=== PATIENT | female | born 1955 | race Caucasian/White ===

== ENCOUNTER 2023-10-16 08:32 | Outpatient (CLI) | payer MEDICARE, OTHER, SELFPAY ==
--- NOTE | ~2023-10-16 | XR_ITS ---
EXAMINATION: XR UGIAC w barium swallow DATE: 10/16/2023 09:41 INDICATION: Epigastric abdominal pain. Sebas fundoplication. TECHNIQUE: The patient drank thick barium, gas-producing crystals, and thin barium. Fluoroscopy of th e esophagus, stomach, and proximal small bowel was performed. Fluoroscopy exposure time was 0.9 minut es. The total number of images was 288. Total dose-area product was 2.64 Gy-cm^2. COMPARISON: CT abdomen and pelvis 08/22/2009 FINDINGS: There is no mass or stricture of the esophagus. Esophageal motility is normal. The gastroes ophageal junction is at the level of the diaphragm. There are changes of fundoplication of the stomac h with the wrap above the diaphragm. The stomach and proximal small bowel show normal folding pattern s. IMPRESSION: 1. Changes of fundoplication with the gastroesophageal junction at the level of the diaphragm and the wrap above the diaphragm. Reviewed, dictated and finalized at location A. COMPLIANCE COORDINATOR
== END 2023-10-16 08:33 | disposition home or self-care (01) ==
PROVIDERS: PCP Emergency Medicine; Visit Provider Surgery
DX: R10.13 Epigastric pain (principal); K21.9 Gastro-esophageal reflux disease without esophagitis
CPT/HCPCS: 74246

== ENCOUNTER 2023-10-28 09:30 | Outpatient (CLI) | payer MEDICARE, OTHER, SELFPAY ==
--- NOTE | ~2023-10-28 | NM_ITS ---
EXAMINATION: NM hepatobiliary wo pharm DATE: 10/28/2023 12:35 INDICATION: Epigastric abdominal pain. COMPARISON: Ultrasound 10/28/2023 TECHNIQUE: 5.3 mCi Tc-99m mebrofenin (Choletec) was administered intravenously. Scintigraphic images of the abdomen were obtained for one hour. Then, the patient drank 8 oz Ensure, and imaging was cont inued for 60 minutes. FINDINGS: There is normal clearance of radiotracer from the blood pool. There is homogeneous tracer u ptake by the liver. Activity progresses to the bowel and gallbladder. Gallbladder ejection fraction (GBEF) was 14%. Note that with this technique, normal GBEF >= 33%. IMPRESSION: 1. Low gallbladder ejection fraction, consistent with gallbladder dysfunction and/or chronic cholecy stitis. Reviewed, dictated and finalized at location A. P WHEELER IMPRESSION: 1. Low gallbladder ejection fraction, consistent with gallbladder dysfunction and/or chronic cholecystitis.
--- NOTE | ~2023-10-28 | US_ITS ---
US abdomen limited INDICATION: Epigastric pain PROCEDURE: Realtime right upper abdominal ultrasound. COMPARISON: No prior studies for comparison. FINDINGS: The pancreas is normal without focal mass or pancreatic ductal dilation. Liver echotexture is normal without focal mass or intrahepatic biliary dilatation. There is normal directional flow i n the portal vein. The gallbladder is normal without stones, gallbladder wall thickening or pericholecystic fluid. Comm on bile duct measures 4 mm. No sonographic Liu's sign. IMPRESSION: 1: Normal limited abdominal ultrasound. Reviewed, dictated and finalized at location B. EN WRITER
== END 2023-10-28 09:31 | disposition home or self-care (01) ==
PROVIDERS: PCP Emergency Medicine; Visit Provider Surgery
DX: R10.13 Epigastric pain (principal)
CPT/HCPCS: 76705; 78226; A9537

== ENCOUNTER 2023-11-22 10:19 | Outpatient (CLI) | payer MEDICARE, OTHER, SELFPAY ==
--- NOTE | 2023-11-22 10:30 | ECG_ITS ---
Measurements Intervals [place] Rate: 62 P: 50 MN: 208 QRS: 22 QRSD: 88 T: 31 QT: 386 QTc: 393 Interpretive Statements BASELINE ARTIFACT/POOR DATA QUALITY SINUS RHYTHM LOW QRS VOLTAGE IN PRECORDIAL LEADS [QRS DEFLECTION < 1.0 mV IN CHEST LEADS] OTHERWISE GROSSLY NORMAL ECG NO PREVIOUS ECG AVAILABLE FOR COMPARISON Electronically Signed On 11-22-2023 15:13:55 LIE DETECTOR OPERATOR by Paul Diehl M.D.
[2023-11-22 11:14] LABS: Alanine Aminotransferase 18 U/L (6-35); Albumin Level 4.4 g/dL (3.5-5.1); Alkaline Phosphatase 70 U/L (38-126); Amylase 78 U/L (30-110); Aspartate Amino Transferase 27 U/L (14-36); Bilirubin,Total 0.5 mg/dL (0.2-1.3); Lipase 203 U/L (23-300)
== END 2023-11-22 10:20 | disposition home or self-care (01) ==
LOC: ANHSURGERY 10:24
PROVIDERS: PCP Emergency Medicine; Visit Provider Surgery
DX: Z01.818 Encounter for other preprocedural examination (principal); K81.9 Cholecystitis, unspecified; I10 Essential (primary) hypertension; R93.1 Abnormal findings on diagnostic imaging of heart and coronary circulation
CPT/HCPCS: 36415; 80076; 82150; 83690; 86850; 86900; 86901; 93005

== ENCOUNTER 2023-11-27 00:59 | Day surgery (SDC) | payer MEDICARE, OTHER, SELFPAY ==
[2023-11-19 11:25] VITALS: BMI 27.1
--- NOTE | 2023-11-19 11:34 | PC.NURSE ---
PRE-OP INSTRUCTIONS, PLEASE READ CAREFULLY Report to the Outpatient Waiting Room, entrance under the green pavilion located off [facility], at time _0800_ on date _11/27/23_. Planned Procedure Time: _1000_. Time changes happen often and if your time is changed the preop area will call you the afternoon before. - You and your visitor will be asked to self-screen and do not enter if you have any COVID symptoms. - A mask is optional within the hospital at this time. Patients may have clear liquids (water, carbonated beverages, clear teas, apple juice) until 3 hours prior to surgery (0700 AM) with a maximum of 20 ounces. - No food from midnight until time of surgery Take the following medications with a SIP of water the morning of surgery: _AMLODIPINE, ESCITALOPRAM, GABAPENTIN, LEVOTHYROXINE, METOPROLOL_ DO NOT STOP ANY OF YOUR OTHER PRESCRIPTION MEDICATIONS PRIOR TO SURGERY ?EXCEPT THE FOLLOWING Medications to discontinue per physician __NONE__, Date to take last dose Please no make-up, nail guyanese, hairspray, perfume, deodorant, or body powder the day of surgery. No jewelry (including any body piercings) or valuables the day of surgery, leave them at home. Please take a shower or bath the night before, or the morning of, surgery with an antibacterial soap. Wear comfortable, loose fitting clothing. - Jewelry must be removed prior to entering the operating room. Rings and piercings that are not removed may be cut off. - The hospital will not accept responsibility for valuables. - Please leave all valuables, including medications, at home the day of surgery. If you are going home after surgery, a licensed front loader residential driver must drive you home. - NO public transportation without another adult if you receive anesthesia. - We recommend that an adult stay with you for 24 hours following discharge. - We also recommend that you do not drive, make important decision, drink alcoholic beverages, or take any drugs that were not prescribed by your health care provider for at least 24 hours after your discharge time. Follow any additional instructions given to you from your surgeon. - HIBICLENS SHOWER AM OF SURGERY If you or anyone in your household have experienced Covid symptoms in the past week, please notify your surgeon or the nurse liaison at the phone number below for possible testing. Telephone instructions given to _PATIENT_and asked if any additional questions and then verbalized understanding. Patient advised to call surgeon office or pre surgery nurse liaison [phone] if any additional questions.
[2023-11-27] VITALS (8 sets, daily range): BP systolic 100–145; BP diastolic 51–93; PULSE 51–87; RESP 12–22; TEMP 36.4–36.8; O2SAT 93–100
--- NOTE | 2023-11-27 10:51 | WPDHPUPDATE1 ---
History and Physical Update Update Date/Time: 11/27/23 10:51 History and Physical has been reviewed, including an updated exam of the patient. There are NO changes in the patient's condition. Risks, benefits, and alternatives have been discussed and questions answered. Patient agrees to proceed with procedure.
[2023-11-27] MEDS: KETOROLAC 15 MG/ML VIAL (*BKC) IV PUSH (11:35)
[2023-11-27] MEDS: ACETAMINOPHEN 500 MG TABLET 1000 MG PO (11:35)
--- NOTE | 2023-11-27 11:36 | WPDANESEPPF ---
Anes - Initial Pre Proc Eval Procedure: Operation Date: 11/27/23 13:00 Proposed Procedures p Laparoscopic Cholecystectomy - Rufino Fernandes MD Date/Time: 11/27/23 11:36 Surgeon: Rufino Fernandes MD Pre Op Diagnosis: acalculous cholecystitis Patient Data Age: 68 Gender: F Height: 1.63 m Weight: 71.81 kg Allergies Allergy/AdvReac Type Severity Reaction Status Date / Time Sulfa (Sulfonamide Allergy Unknown RESPIRATORY Verified 11/27/23 11:35 Antibiotics) DISTRESS/RASH Home Medications Medication Instructions Recorded Confirmed Type metoprolol tartrate 50 mg tablet See Rx Instructions .Route 04/01/23 11/27/23 Rx .COMPLEX #180 tabs scopolamine base 1 mg over 3 days 1 patch transdermal Q3D PRN motion 04/25/23 11/19/23 Rx transdermal patch sickness #4 ea escitalopram oxalate 5 mg tablet See Rx Instructions .Route 04/30/23 11/27/23 Rx .COMPLEX #90 tabs levothyroxine 50 mcg tablet See Rx Instructions .Route 06/24/23 11/27/23 Rx (Synthroid) .COMPLEX #90 tabs amlodipine 10 mg tablet See Rx Instructions .Route 08/26/23 11/27/23 Rx .COMPLEX #90 tabs potassium chloride 10 mEq See Rx Instructions .Route 08/26/23 11/27/23 Rx capsule,extended release .COMPLEX #90 caps hydrochlorothiazide 25 mg tablet See Rx Instructions .Route 09/05/23 11/27/23 Rx .COMPLEX #90 tabs alprazolam 0.5 mg tablet (Xanax) 0.5 mg PO DAILY PRN Anxiety 11/19/23 11/27/23 History fluticasone propionate 50 1 spray intranasal BID PRN 11/19/23 11/27/23 History mcg/actuation nasal Congestion spray,suspension (Flonase Allergy Relief) gabapentin 600 mg tablet See Rx Instructions .Route .COMPLEX 11/19/23 11/27/23 History valacyclovir 1 gram tablet 1,000 mg PO DAILY PRN FEVER 11/19/23 11/27/23 History BLISTERS Patient hx anesthesia problems: post op nausea/vomiting Family hx anesthesia problems: none Results Review: All pre-operative results and documents have been reviewed as part of the pre-operative evaluation. [facility] Past Medical History Medical History GERD (gastroesophageal reflux disease) Hypertension Kidney stones Mitral valve prolapse Surgical History Surgical History History of appendectomy History of bilateral breast reduction surgery History of cataract extraction History of cystoscopy History of hysterectomy History of lithotripsy History of Sebas fundoplication [address] Fernandes History of rotator cuff surgery right History of tubal ligation Family History Family History Father Diabetes mellitus Family history of hypercholesterolemia Hypertension Family history of kidney disease Family history of coronary artery disease Mother Family history of hypercholesterolemia Hypertension Family history of coronary artery disease Sibling Family history of malignant melanoma Grandparent Family history of malignant neoplasm of ovary Other Family history of cardiovascular disease Family history of malignant neoplasm Social History Social History Smoking status: Never smoker Second hand tobacco smoke exposure: No Alcohol intake: current Alcohol use details: 1/MONTH Substance use: never Substance use type: does not use Lack of Transportation: No Lack of Food: Never True Current Housing: I Have Housing Concerned About Future Housing: No Difficulty Paying Gas/Electric Bills: No Difficulty Paying for Meds: No Currently Unemployed: No Education: Don't Know Difficulty w/ Childcare or Family Care: No Living arrangements: with family Spiritual care concerns: No Anes - Eval Final PreProcedure Day of Procedure 11/27/23 11:36 Patient weight: normal Heart: regular rate and rhythm Lungs: clear to auscultation Airway: Mal
[2023-11-27] MEDS: ceFAZolin 2 GM/D5W 50 ML 2 GM/50 ML BAG IVPB (11:50)
[2023-11-27] MEDS: BUPIVACAINE/EPINEPHRINE 0.5% 50 ML VIAL 30 ML INFILTRATE (12:22)
--- NOTE | 2023-11-27 12:36 | P.OP_ITS ---
Procedure Note - Detailed Date of Procedure 11/27/23 Pre-op Diagnosis acalculous chronic cholecystitis Post-op Diagnosis Same Procedure Performed Laparoscopic cholecystectomy Surgeon Rufino Fernandes MD Child Development Teacher Elroy HOYT Anesthesia General and Local Indications Patient is a 68-year-old woman who has had postprandial substernal pain that radiates to the right upper quadrant. It is worse after eating a big meal. She had an ultrasound of the gallbladder which was negative. She had an upper GI which was also negative. Hepatobiliary scan with Ensure showed a very low gallbladder ejection fraction of 14%. She is taken to surgery now for laparoscopic cholecystectomy for acalculous chronic cholecystitis. Findings Mild inflammatory changes. No biliary ductal dilatation. No liver abnormalities appreciated. Description of Procedure Patient was taken to surgery and induced into general anesthesia. The abdomen is prepped and draped. Trocars were placed in the usual fashion using [employer] optical trocars and a 5 mm camera. The gallbladder was decompressed with a laparoscopic aspirator. The cholecystotomy was closed with a Vicryl endoloop. The gallbladder was then retracted anterosuperiorly. Adhesions to the gallbladder were taken down. Traction was placed on the infundibulum. Dissection was carried out in the cholecystohepatic triangle. The cystic duct and cystic artery were dissected out very clearly. The gallbladder was dissected off the liver over half its length. Critical view was achieved. I securely clipped and divided the cystic duct and cystic artery. The gallbladder was then dissected free from the liver. Cautery was used for hemostasis. The gallbladder was placed in an Endo-Catch bag and removed from the epigastric trocar site. The epigastric trocar was replaced. We checked the gallbladder fossa and right upper quadrant. There was no evidence of bleeding or bile leak. We evacuated CO2 and removed the trocar sleeves. Skin wounds were closed with subcuticular 4-0 Monocryl skin suture. The wounds were dressed with Exofin surgical adhesive. The patient was awakened and taken to recovery in good condition. Sponge and needle counts were correct x2. Estimated Blood Loss -5 Drains No Packing No Pathology Yes (Gallbladder) Complications No immediate complications Condition Stable Disposition PACU [facility] Billing Surgery - Charge Forward: Surgery Billing (Laparoscopic cholecystectomy)
[2023-11-27] MEDS: LACTATED RINGERS 1,000 ML 30 ML IV CONT (12:43)
[2023-11-27] MEDS: fentaNYL CITRATE INJ (*CRX) 100 MCG/2 ML VIAL 25 MCG IV PUSH ×2 (13:10→13:20)
[2023-11-27] MEDS: oxyCODONE HCL (*CRX) 5 MG TAB IR PO (13:51)
== END 2023-11-27 14:28 | disposition home or self-care (01) ==
PROVIDERS: PCP Emergency Medicine; Visit Provider Surgery
PROC: 0FT44ZZ Resection of Gallbladder, Percutaneous Endoscopic Approach (ICD-10-PCS; CPT 47562; principal; 2023-11-27 13:00)
DX: K80.10 Calculus of gallbladder with chronic cholecystitis without obstruction (principal); I10 Essential (primary) hypertension; K21.9 Gastro-esophageal reflux disease without esophagitis; Z98.890 Other specified postprocedural states; Z86.79 Personal history of other diseases of the circulatory system; Z82.49 Family history of ischemic heart disease and other diseases of the circulatory system; Z80.41 Family history of malignant neoplasm of ovary; Z80.8 Family history of malignant neoplasm of other organs or systems
CPT/HCPCS: 47562; 88304; A9270; C1713; J0690; J1100; J1885; J2250; J2405; J2704; J2710; J3010; J7120

== ENCOUNTER → 2024-01-01 10:31 | Outpatient (CLI) | payer MEDICARE, OTHER, SELFPAY ==
--- NOTE | ~2024-01-01 | MM_ITS ---
EXAMINATION: MM screening hank BI w angela HISTORY: Screening TECHNIQUE: Craniocaudal and mediolateral oblique 3-D tomosynthesis images were obtained and synthetic 2-D images were generated. CAD analysis was submitted and interpreted. COMPARISON: Comparison to multiple prior studies sequentially, with oldest reviewed study dated 10/03. BREAST PARENCHYMAL COMPOSITION: Breast composed of scattered areas of fibroglandular density FINDINGS: There is no evidence of suspicious mass, calcification, or architectural distortion to sugg est malignancy in either breast. There has been no suspicious interval change. IMPRESSION: 1. No mammographic evidence of malignancy. 2. Recommend routine screening mammography in one year. BI-RADS Category 1: Negative Reviewed, dictated and finalized at location A. N BUILDER
== END ==
PROVIDERS: PCP Emergency Medicine; Visit Provider Emergency Medicine
DX: Z12.31 Encounter for screening mammogram for malignant neoplasm of breast (principal)
CPT/HCPCS: 77063; 77067

== ENCOUNTER 2024-01-02 01:15 | Day surgery (SDC) | payer MEDICARE, OTHER, SELFPAY ==
[2023-12-13 11:22] VITALS: BMI 26.9
--- NOTE | 2023-12-31 09:12 | SUR.PREOP ---
Patient called regarding upcoming procedure. Reviewed preop instructions, appointment times, and procedure prep.
--- NOTE | 2024-01-01 16:12 | PM.HPGS ---
History of Present Illness History of Present Illness Consent: Risks, benefits, and alternatives have been discussed and questions answered. Patient agrees to proceed with procedure. Chief complaint: epigastric pain,Other specified post procedural st Narrative: Margaret Ocasio is a 68 year old female Referred for investigation of epigastric pain. She has a history of acid reflux and had an unremarkable EGD 5 years ago. For about 7 months now she has had a constant discomfort in the lower substernal area, a pressure sensation. She states she had a fundoplication several years ago because she was having nocturnal regurgitation and choking. This no longer occurs, nor does she have problems with heartburn, but her barium swallow done a couple months ago shows that her fundoplication now is above the diaphragm. She had a cholecystectomy last month hoping this would help, However her symptoms have not been alleviated. Review of Systems Review of Systems: All systems reviewed & are unremarkable except as noted in HPI and below PMFSH Past Medical History Medical History GERD (gastroesophageal reflux disease) Hypertension Kidney stones Mitral valve prolapse Surgical History Surgical History History of appendectomy History of bilateral breast reduction surgery History of cataract extraction History of cystoscopy History of hysterectomy History of lithotripsy History of Sebas fundoplication [address] Fernandes History of rotator cuff surgery right History of tubal ligation Family History Family History Father Diabetes mellitus Family history of hypercholesterolemia Hypertension Family history of kidney disease Family history of coronary artery disease Mother Family history of hypercholesterolemia Hypertension Family history of coronary artery disease Sibling Family history of malignant melanoma Grandparent Family history of malignant neoplasm of ovary Other Family history of cardiovascular disease Family history of malignant neoplasm Social History Social History Smoking status: Never smoker Second hand tobacco smoke exposure: No Alcohol intake: current Drinks per week: 1 Alcohol use details: GLASS WINE Substance use: never Substance use type: does not use Lack of Transportation: No Lack of Food: Never True Current Housing: I Have Housing Concerned About Future Housing: No Difficulty Paying Gas/Electric Bills: No Difficulty Paying for Meds: No Currently Unemployed: No Education: Don't Know Difficulty w/ Childcare or Family Care: No Living arrangements: with family Spiritual care concerns: No Meds Home Medications and Allergies Home Medications Medication Instructions Recorded Confirmed Type metoprolol tartrate 50 mg tablet See Rx Instructions .Route 04/01/23 12/13/23 Rx .COMPLEX #180 tabs scopolamine base 1 mg over 3 days 1 patch transdermal Q3D PRN motion 04/25/23 12/13/23 Rx transdermal patch sickness #4 ea escitalopram oxalate 5 mg tablet See Rx Instructions .Route 04/30/23 12/13/23 Rx .COMPLEX #90 tabs levothyroxine 50 mcg tablet See Rx Instructions .Route 06/24/23 12/13/23 Rx (Synthroid) .COMPLEX #90 tabs amlodipine 10 mg tablet See Rx Instructions .Route 08/26/23 12/13/23 Rx .COMPLEX #90 tabs potassium chloride 10 mEq See Rx Instructions .Route 08/26/23 12/13/23 Rx capsule,extended release .COMPLEX #90 caps hydrochlorothiazide 25 mg tablet See Rx Instructions .Route 09/05/23 12/13/23 Rx .COMPLEX #90 tabs alprazolam 0.5 mg tablet (Xanax) 0.5 mg PO DAILY PRN Anxiety 11/19/23 12/13/23 History fluticasone propionate 50 1 spray intranasal BID PRN 11/19/23 12/13/23 History mcg/actuation nasal Congestion spray,suspension
[2024-01-02 12:21] VITALS: BP 147/73; PULSE 61; RESP 20; TEMP 36.4; O2SAT 98; BMI 26.6
[2024-01-02] MEDS: LACTATED RINGERS 1,000 ML 150 ML IV CONT (12:32)
--- NOTE | 2024-01-02 12:58 | WPDANESEPPF ---
Anes - Initial Pre Proc Eval Procedure: Operation Date: 01/02/24 13:30 Proposed Procedures p Esophagogastroduodenoscopy - Abdirahman Martell MD Date/Time: 01/02/24 12:58 Surgeon: Abdirahman Martell MD Pre Op Diagnosis: epigastric pain,Other specified post procedural st Patient Data Age: 68 Gender: F Height: 1.63 m Weight: 70.5 kg Last Vital Signs Temp 36.4 C 01/02/24 12:21 Pulse 61 01/02/24 12:21 Resp 20 01/02/24 12:21 BP 147/73 H 01/02/24 12:21 Pulse Ox 98 01/02/24 12:21 O2 Del Method Room Air 01/02/24 12:21 Allergies Allergy/AdvReac Type Severity Reaction Status Date / Time Sulfa (Sulfonamide Allergy Severe RESPIRATORY Verified 01/02/24 12:19 Antibiotics) DISTRESS/RASH Home Medications Medication Instructions Recorded Confirmed Type metoprolol tartrate 50 mg tablet See Rx Instructions .Route 04/01/23 12/13/23 Rx .COMPLEX #180 tabs scopolamine base 1 mg over 3 days 1 patch transdermal Q3D PRN motion 04/25/23 12/13/23 Rx transdermal patch sickness #4 ea escitalopram oxalate 5 mg tablet See Rx Instructions .Route 04/30/23 12/13/23 Rx .COMPLEX #90 tabs levothyroxine 50 mcg tablet See Rx Instructions .Route 06/24/23 12/13/23 Rx (Synthroid) .COMPLEX #90 tabs amlodipine 10 mg tablet See Rx Instructions .Route 08/26/23 12/13/23 Rx .COMPLEX #90 tabs potassium chloride 10 mEq See Rx Instructions .Route 08/26/23 12/13/23 Rx capsule,extended release .COMPLEX #90 caps hydrochlorothiazide 25 mg tablet See Rx Instructions .Route 09/05/23 12/13/23 Rx .COMPLEX #90 tabs alprazolam 0.5 mg tablet (Xanax) 0.5 mg PO DAILY PRN Anxiety 11/19/23 12/13/23 History fluticasone propionate 50 1 spray intranasal BID PRN 11/19/23 12/13/23 History mcg/actuation nasal Congestion spray,suspension (Flonase Allergy Relief) gabapentin 600 mg tablet See Rx Instructions .Route .COMPLEX 11/19/23 12/13/23 History valacyclovir 1 gram tablet 1,000 mg PO DAILY PRN FEVER 11/19/23 12/13/23 History BLISTERS Patient hx anesthesia problems: none Family hx anesthesia problems: none Results Review: All pre-operative results and documents have been reviewed as part of the pre-operative evaluation. [facility] Past Medical History Medical History GERD (gastroesophageal reflux disease) Hypertension Kidney stones Mitral valve prolapse Surgical History Surgical History History of appendectomy History of bilateral breast reduction surgery History of cataract extraction History of cystoscopy History of hysterectomy History of lithotripsy History of Sebas fundoplication [address] Fernandes History of rotator cuff surgery right History of tubal ligation Family History Family History Father Diabetes mellitus Family history of hypercholesterolemia Hypertension Family history of kidney disease Family history of coronary artery disease Mother Family history of hypercholesterolemia Hypertension Family history of coronary artery disease Sibling Family history of malignant melanoma Grandparent Family history of malignant neoplasm of ovary Other Family history of cardiovascular disease Family history of malignant neoplasm Social History Social History Smoking status: Never smoker Second hand tobacco smoke exposure: No Alcohol intake: current Drinks per week: 1 Alcohol use details: GLASS WINE Substance use: never Substance use type: does not use Lack of Transportation: No Lack of Food: Never True Current Housing: I Have Housing Concerned About Future Housing: No Difficulty Paying Gas/Electric Bills: No Difficulty Paying for Meds: No Currently Unemployed: No Education: Don't Know Difficulty w/ Childcare or Family Ca
[2024-01-02 13:52] VITALS: BP 102/50; PULSE 60; RESP 20; O2SAT 98
[2024-01-02 14:02] VITALS: BP 118/61; PULSE 54; RESP 17; O2SAT 99
[2024-01-02 14:12] VITALS: BP 104/57; PULSE 55; RESP 17; O2SAT 100
== END 2024-01-02 14:27 | disposition home or self-care (01) ==
PROVIDERS: PCP Emergency Medicine; Referring Provider Surgery; Visit Provider Internal Medicine Gastroenterology
PROC: 0DJ08ZZ Inspection of Upper Intestinal Tract, Via Natural or Artificial Opening Endoscopic (ICD-10-PCS; CPT 43235; principal; 2024-01-02 13:30)
DX: K31.89 Other diseases of stomach and duodenum (principal); K21.9 Gastro-esophageal reflux disease without esophagitis; I10 Essential (primary) hypertension; Z98.890 Other specified postprocedural states; Z90.49 Acquired absence of other specified parts of digestive tract; Z86.79 Personal history of other diseases of the circulatory system; Z82.49 Family history of ischemic heart disease and other diseases of the circulatory system; Z80.8 Family history of malignant neoplasm of other organs or systems; Z80.41 Family history of malignant neoplasm of ovary
CPT/HCPCS: 43235; J2001; J2704; J7120

== ENCOUNTER 2024-02-19 10:07 | Outpatient (CLI) | payer MEDICARE, OTHER, SELFPAY ==
--- NOTE | ~2024-02-19 | DEXA_ITS ---
Bone Density Report Name: JENNIFER ZAMUDIO Age: 68 Sex: Female Ethnicity: White Date of : 1955 Indication: postmenopausal; screening for osteoporosis; hysterectomy; Referring Provider: SONU NICHOLAS Study: Bone densitometry was performed. Exam Date: February 19, 2024 Accession number: [id number] Bone Density: Region BMD T-score Z-score Classification AP Spine (L1, L3, L4) 0.916 -1.2 0.9 Osteopenia Femoral Neck (Left) 0.684 -1.5 0.3 Osteopenia Total Hip (Left) 0.805 -1.1 0.4 Osteopenia Femoral Neck (Right) 0.693 -1.4 0.4 Osteopenia Total Hip (Right) 0.798 -1.2 0.3 Osteopenia Total Hip Mean 0.802 -1.2 0.4 Osteopenia World Health Organization criteria for BMD impression classify patients as: Normal (T-score at or above -1.0), Osteopenia (T-score between -1.0 and -2.5), or Osteoporosis (T-score at or below -2.5). 10-year Fracture Risk(1): Major Osteoporotic Fracture 9.6% Hip Fracture 1.3% Reported Risk Factors: [place] (), Neck BMD=0.693, BMI=27.2 (1) FRAX(R) Version 3.08. Fracture probability calculated for an untreated patient. Fracture probability may be lower if the patient has received treatment. Previous Exams: Region Exam Age BMD T-score BMD Change BMD Change Date g/cm2 vs Baseline vs Previous AP Spine(L1, L3, L4) 02/19/2024 68 0.916 -1.2 -0.027* -0.029* 10/30/2018 63 0.945 -1.0 0.002 0.002 08/25/2012 57 0.943 -1.0 Total Hip(Left) 02/19/2024 68 0.805 -1.1 -0.039* -0.021 10/30/2018 63 0.826 -1.0 -0.018 -0.018 08/25/2012 57 0.844 -0.8 Total Hip(Right) 02/19/2024 68 0.798 -1.2 -0.068* -0.019 10/30/2018 63 0.818 -1.0 -0.049* -0.049* 08/25/2012 57 0.867 -0.6 *Denotes significance at 95% confidence level, LSC for AP Spine = 0.022 g/cm2, LSC for Total Hip = 0.027 g/cm2 Clinical Information Provided by Patient: Has the following medical conditions: Hysterectomy Patient maximum height was 64 Menopause Age: 28 Drinks caffeinated beverages Onset of menses at age 10 Number of children 2 Impression: The patient has low bone mass, based on the Left Femoral Neck T-score. The patient has an estimated ten-year risk of hip fracture of 1.3% and an estimated ten-year risk of major fracture of 9.6%, based on the WHO FRAX algorithm. The BMD for the AP Spine(L1, L3, L4) decreased, changi
== END 2024-02-19 10:08 ==
LOC: MICIMG 10:08
PROVIDERS: PCP Emergency Medicine; Visit Provider Emergency Medicine
DX: M85.89 Other specified disorders of bone density and structure, multiple sites (principal); Z78.0 Asymptomatic menopausal state
CPT/HCPCS: 77080

== ENCOUNTER 2024-05-14 08:33 | Outpatient (CLI) | payer MEDICARE, OTHER, SELFPAY ==
--- NOTE | ~2024-05-14 | CT_ITS ---
CT of the Abdomen and Pelvis: Indication: Abdominal pain Technique: 2.5 mm axial scans were obtained through the abdomen and pelvis following intravenous adm inistration of 100 cc of Omnipaque 350. Dose reduction technique was used on this scan by utilizing a utomated exposure control and iterative reconstruction technique. The dose-length product (DLP) was 3 99.08 mGy-cm. Findings: Scans through the lung bases demonstrate linear bibasilar scarring or atelectasis. The liver, spleen, pancreas, adrenals and kidneys are within normal limits. Cholecystectomy clips are present. No evidence of aortic aneurysm. No lymphadenopathy. No bowel obstruction or bowel wall thickening. There is no evidence to suggest acute appendicitis. Images through the pelvis were performed. Urinary bladder unremarkable. No pelvic mass seen. No ascit es. Impression: No significant abnormalities seen. Reviewed, dictated and finalized at [facility]. Impression: No significant abnormalities seen.
[2024-05-14 09:03] LABS: Estimated Glomerular Filt Rate > 60
== END 2024-05-14 08:34 | disposition home or self-care (01) ==
PROVIDERS: PCP Nurse Practitioner Family; Visit Provider Nurse Practitioner Family
DX: R10.31 Right lower quadrant pain (principal)
CPT/HCPCS: 74177; Q9967

== ENCOUNTER 2024-07-20 14:48 | Outpatient (CLI) | payer MEDICARE, OTHER, SELFPAY ==
[2024-07-20 15:11] LABS: Hemoglobin 14.5 g/dL (12.0-15.0); Mean Corpuscular HGB Conc 33.7 g/dl (32-36); Mean Corpuscular Hemoglobin 29.2 pg (26-34); Mean Corpuscular Volume 86.5 fl (80-100); Mean Platelet Volume 9.7 fl (7.4-10.4); Platelet Count Result 351 k/mm3 (150-375); Red Blood Count 4.97 M/mm3 (4.2-5.4); Red Cell Distribution Width 12.4 % (11.5-14.5); White Blood Count 9.2 K/mm3 (4.5-10.0)
[2024-07-20 15:24] LABS: Alanine Aminotransferase 16 U/L (6-35); Albumin Level 4.4 g/dL (3.5-5.1); Alkaline Phosphatase 72 U/L (38-126); Anion Gap 9 mmol/L (4-12); Aspartate Amino Transferase 28 U/L (14-36); Bilirubin,Total 0.4 mg/dL (0.2-1.3); Blood Urea Nitrogen 22 mg/dL (7-17); Calcium 9.4 mg/dL (8.4-10.2); Carbon Dioxide 30 mmol/L (22-30); Chloride 99 mmol/L (98-107); Estimated Glomerular Filt Rate > 60; Glucose 116 mg/dL (65-110); Potassium 3.6 mmol/L (3.4-5.0); Sodium 138 mmol/L (137-145)
== END 2024-07-20 14:49 | disposition home or self-care (01) ==
LOC: ANHLAB 14:52
PROVIDERS: PCP Nurse Practitioner Family; Visit Provider Nurse Practitioner Family
DX: K21.9 Gastro-esophageal reflux disease without esophagitis (principal); R10.31 Right lower quadrant pain
CPT/HCPCS: 36415; 80053; 85027

== ENCOUNTER 2024-09-25 08:28 | Outpatient (CLI) | payer MEDICARE, OTHER, SELFPAY ==
--- NOTE | ~2024-09-25 | CT_ITS ---
EXAMINATION: CT sinus wo con DATE: 09/25/2024 08:53 INDICATION: Nasal congestion TECHNIQUE: Computed tomography (CT) of the paranasal sinuses was performed without intravenous contra st. The dose-length product was 286.97 mGy-cm. Automated exposure control and iterative reconstructio n technique were employed. COMPARISON: None FINDINGS: Paranasal sinuses and mastoids are pneumatized. No air-fluid levels. Rightward nasal septal deviation. Left-sided shayla bullosa. Ostiomeatal units are patent. Mild mucosal thickening right ma xillary sinus. IMPRESSION: 1. Mild right maxillary sinus mucosal thickening. Reviewed, dictated and finalized at location B.
== END 2024-09-25 08:29 | disposition home or self-care (01) ==
PROVIDERS: PCP Emergency Medicine; Visit Provider Emergency Medicine
DX: R09.81 Nasal congestion (principal)
CPT/HCPCS: 70486

== ENCOUNTER 2025-03-26 10:58 | Outpatient (CLI) | payer MEDICARE, OTHER, SELFPAY ==
--- NOTE | ~2025-03-26 | XR_ITS ---
XR knee LT min 4V 03/26/2025 11:22 Indication: Left knee pain Procedure: 4 views left knee Comparison: No prior studies for comparison. Findings: There is chondrocalcinosis. Mild osteoarthritis. No fracture, subluxation or dislocation. N o significant joint effusion. No foreign bodies. Impression: 1: No acute bone or joint abnormality. 2: Mild osteoarthritis. 3: Chondrocalcinosis. Reviewed, dictated and finalized at location A. Impression: 1: No acute bone or joint abnormality. 2: Mild osteoarthritis. 3: Chondrocalcinosis.
--- OUTSIDE RECORDS SUMMARY | 2025-03-26 11:22 | XMS_ITS | Clinical Summary ---
Author Organization [facility] Address [address] [place] [address] Care Team Providers Care Clin Tech Name Role Phone Paul Gaines MD Primary Care Provide r Sotero Mcbride MD Unavailable Allergies Active Allergy Reactions Criticality Noted Date Comments Sulfa (Sulfonamide Antibiotics) Shortness of breath,Rash High Trimethoprim Rash Medium 08/02/2011 Medications levothyroxine (SYNTHROID) 50 mcg tablet 03/01/2021 Active hydroCHLOROthia zide (HYDRODIURIL) 25 mg tablet Take 1 tablet (25 mg total) by mouth daily 01/25/2020 Active metoprolol tartrate (LOPRESSOR) 50 mg immediate release tablet Take 1 tablet (50 mg total) by mouth 2 (two) times a day 01/25/2020 Active amLODIPine (NORVASC) 10 mg tablet Take 1 tablet (10 mg total) by mouth daily Active linaCLOtide (LINZESS) 145 mcg capsule 1 capsule (145 mcg total) PRN Active hyoscyamine sulfate 0.125 mg-0.25 mg (0.375 mg) tablet,ext release multiphase Take by mouth Active escitalopram (LEXAPRO) 5 mg tablet 09/12/2022 Active gabapentin (NEURONTIN) 300 mg capsule Take 1 capsule (300 mg total) by mouth 3 (three) times a day 09/10/2022 Active potassium chloride ER 10 mEq CR capsule 10/01/2022 Acti ve cholecalciferol (VITAMIN D-3) 1,000 unit Take 1 tablet/capsu le (1,000 Units total) by mouth daily Active Lactobac no.41/Bifidobac t no.7 (PROBIOTIC-10 ORAL) Take by mouth Active Active Problems No known active problems Surgical History Surgery Date Site/Laterality Comments HYSTERECTOMY Total Hysterectomy - (Added by TW Conv) [place] OOPHORECTOMY PARTIAL/TOTA L UNI/BI Oophorectomy - Unilateral (Removal Of One Ovary) - (Added by TW Conv) EXTRACORPOREAL SHOCK WAVE LITHOTRIPSY Lithotripsy - (Added by TW Conv) BLADDER SURGERY Bladder Surgery - (Added by TW Conv) ROTATOR CUFF REPAIR REVERSE TOTAL SHOULDER ARTHROPLASTY Medical History Medical History Date Comments Personal history of other di seases of the circulatory system History of hypertension - (A dded by Conv) Personal history of other sp ecified conditions History of ulceration - (Add ed by Conv) Personal history of other di seases of the circulatory system History of mitral valve prol apse - (Added by TW Conv) GERD (gastroesophageal reflux disease) Cataract Hypertension Asthma due to seasonal allergies History of kidney problems Thyroid disease Heart disease mitral valve pro lapse - leakage from heart valves IBS (irritable bowel syndrome) H/O impacted cerumen Family History Medical History Relation Name Comments Heart attack Brother 1 Family history of myocardial infarction - (Added by TW Conv) Anemia Father Family history of anemia - (Added by TW Conv) Heart attack Father Ovarian cancer Maternal Grandmother Famil y history of malignant neoplasm of ovary - (Added by TW Conv) Early Cardiac Disease Mother Kidney disease Mother Family histor y of chronic kidney disease - (Added by TW Conv) Ovarian cancer Mother Family histor y of malignant neoplasm of ovary - (Added by TW Conv) Pneumonia Mother Family history of pneumonia - (Added by TW Conv) Kidney disease Paternal Grandfather Famil y history of chronic kidney disease - (Added by TW Conv) Melanoma Sister 1 Family history of malignant melanoma - (Added by TW Conv) Cancer Sister 2 Melanoma Sister 2 Relation Name Status Comments Brother 1 Alive Brother 2 Alive Brother 3 Alive Brother 4 Alive Brother 5 Alive Brother 6 Alive Father Maternal Grandmother Mother Paternal Grandfather Sister 1 Sister 2 Alive Social History Tobacco Use Types Packs/Day Years Used Date Smoking Tobacco: Never Personal Safety Answer Date Recorded Getting School Help Needed Not on file 02/14 Comments Unknown Sex and Gender Information Value Date Recorded Sex Assigned at Not on file Legal Sex Female 12:04 AM RN BARIATRIC Gender Identity Female 10/13/2022 4:59 AM RN BARIATRIC Sexual Orientation Straight 10/13/2022 4: 59 AM RN BARIATRIC Obstetrics History Last Filed Vital Signs Vital Sign Reading Time Taken Comments Blood Pressure 121/80 04/13/2021 7:50 AM CDT Pulse 66 04/13/2021 7:50 AM CDT Temperature - - Respiratory Rate - - Oxygen Saturation 98% 04/03/2018 9:15 AM CDT Inhaled Oxygen Concentration - - Weight 73.5 kg (162 lb) 04/13/2021 7:50 AM CDT Height 162.6 cm (5' 4 ) 04/13/2021 7:50 AM CDT Body Mass Index 27.81 04/13/2021 7:50 AM CDT Plan of Treatment Health Maintenance Due Date Last Done Comments Breast Cancer Screening-Mammogram 1954 Colon Cancer Screening-Colonoscopy 1954 Depression Screening 1954 Fall Risk Assessment 1954 Hepatitis C Screening 1954 Osteoporosis Screening-Bone Density Scan 1954 Hepatitis B Screening 1972 Well Visit 65+ 2019 Covid-19 Vaccine (4 2023-2 5 season) 2024 07/25/2021, 02/25/2021, 02/04/2021 Influenza Vaccine (#1) 2024 , 08/29/2021, 09/01/2020, Additional history exists DTaP/Tdap/Td Vaccine (3 - Td or Tdap) 05/22/2027 05/22/2017, 08/10/2016 Zoster Vaccine Completed 07/24/2019, 05/22/2019 Pneumococcal vaccine 65+ Completed 021, 04/25/2021, 07/08/2020 Insurance MEDICARE FOR LIFE MEDICARE FOR LIFE Care Teams Clin Tech Relationship Specialty Start Date End Date Paul Gaines MD [address] [place] [address] PCP - General Emergency Medicine 10/15/22 Sotero Mcbride MD [id number] [facility] [address] [place] [address] Referring Physician Orthopedic Surgery 10/15/22
--- OUTSIDE RECORDS SUMMARY | 2025-03-26 11:22 | XMS_ITS | Continuity of Care Document ---
Author Name [facility] Organization [facility] Care Team Providers Care Duty Engineer Name Role Phone [facility] Unavailable Unavailable Problems Combined list of problems from Department of Defense and Veterans Affairs facilities. It does not include entries that were removed or entered in error. Problem Status Onset Date Problem Type Date of Resolution Comme nts Source Essential (primary) hypertension Active 06/09/2018 Condition DoD Medications Combined list of outpatient medications from Department of Defense and Veterans Affairs facilities.Medications provided include 1) outpatient medications from the last 15 months, and 2) patient-reported medications. Medication Details Route Status Patient Instructions Prescription Expires Prescription Number Last Dispense Date Ordering Provider Order Date Order Qty Source AMLODIPINE BESYLATE (AMLODIPINE BESYLATE), 10 MG, TABLET, ORAL, Avenue Right, 1000 ea. BOTTLE Active [id number] 4 2023 90 Pharmac y Data Transac tion Service Facilit y ESCITALOPRA M OXALATE (ESCITALOPR AM OXALATE), 5 MG, TABLET, ORAL, EXELAN PHARMACE, 1000 ea. BOTTLE Active [id number] 4 2023 90 Pharmac y Data Transac tion Service Facilit y GABAPENTIN (gabapentin ), 600 MG, TABLET, ORAL, AUNG PHARMACEU, 500 ea. BOTTLE Cancele d [id number] : 2023 0 Pharmac y Data Transac tion Service Facilit y GABAPENTIN (gabapentin ), 600 MG, TABLET, ORAL, AUNG PHARMACEU, 500 ea. BOTTLE Cancele d [id number] : 2023 0 Pharmac y Data Transac tion Service Facilit y GABAPENTIN (gabapentin ), 600 MG, TABLET, ORAL, AUNG PHARMACEU, 500 ea. BOTTLE Active [id number] 2023 270 Pharmac y Data Transac tion Service Facilit y METOPROLOL TARTRATE (metoprolol tartrate), 50 MG, TABLET, ORAL, [employer] 1000 ea. BOTTLE Active [id number] 4 2023 180 Pharmac y Data Transac tion Service Facilit y POTASSIUM CHLORIDE (potassium chloride), 10 MEQ, CAPSULE ER, ORAL, PD-RX PHARM, 100 ea. BOTTLE Active [id number] 4 2023 90 Pharmac y Data Transac tion Service Facilit y Allergies, Adverse Reactions, Alerts Combined list of allergies from Department of Defense and Veterans [facility] facilities. It does not include entries that were removed or entered in error. Substance Category Reaction Severity Reaction type Status Date Reported Comments Source No Known Allergies Drug allergy (disorder) active 12/13/[address] [place] [address] Sotero VELEZ ([facility]) Immunizations Combined list of available immunizations from the Department of Defense and [facility] facilities. 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 Status Comments Source COVID-19, mRNA, LNP-S, PF, 30 mcg/0.3 mL dose, kristen-sucrose 2021 [employer] (PFR) Not Given COVID-19, mRNA, LNP-S, PF, 30 mcg/0.3 mL dose, kristen-sucr ose DoD influenza, high-dose, quadrivalent 2020 DEVON, () Not Given influenza , high-dose , quadrival ent DoD COVID-19, mRNA, LNP-S, PF, 30 mcg/0.3 mL dose 2020 [employer] (PFR) Not Given COVID-19, mRNA, LNP-S, PF, 30 mcg/0.3 mL dose DoD Encounters Combined list of: 1) Encounters from Department of Veterans Affairs facilities going backup to the last 18 months, not all VA inpatient encounters are included; 2) Encounters from the Department of Defense facilities going backup to 280 months. Location Location Details Encounter Type Encounter Number Reason For Visit Attending Provider ADM Date DC Date Status Disposition Source [address] [place] [address] [facility] VELE[facility])(Sco tt [facility] Fam Res [place]) OUTPATIENT [id number] Initial appt with PCM team - [id number] DAVID BAEZ 05/11 Released w/o Limitations [address] [place] [address] [employer]ero VELEZ ([facility])(S cott [facility] Fam Res [place]m [place]) [address] [place] [address])(Sco tt [facility] Fam Res [place]) TELE CONSULT [id number] Notes Entered by: Noni MEJÍA 25 Jun 2016 0801 ------- ------- ------- ------- -- SX - Conditi on flare-u p Private area - Med Request /Maya / - DEMI Villa 06/[address] [place] [address])(S [facility] Fam Res [place] [place]) [address] [place] [address])(Mio tt [facility] [place]) TELE CONSULT [id number] Notes Entered by: PATTIE DAVIS ELS 09 Oct 2016 1311 ------- ------- ------- ------- -- Network [facility] //Levon sheth//44 [phone]/ /AYANNA Rcie 10/[address] [place] [address])(S cott [facility] [place]) [address] [place] [address])(Mio tt [facility] Fam Res [place]m [place]) TELE CONSULT [id number] Notes Entered by: Emily CASTRO 12 Nov 2016 1605 ------- ------- ------- ------- -- Request s med refill. AYANNA LANCASTER 11/[address] [place] [address] [facility])(S [facility] Fam Res [place]m [place]) [address] [place] [address])(Sco tt [facility] Fam [facility] [place]) OUTPATIENT [id number] f/u meds - [id number] AYANNA LANCASTER 12/18 Released w/o Limitations [address] [place] [address])(S cott [facility] Fam Res [place]) [address] [place] [address])(Sco tt [facility] Fam Res [place]m [place]) OUTPATIENT [id number] Rt Ear seems to be clogged ; need help with chau sheridan it up AYANNA LANCASTER 03/05 Released w/o Limitations [address] [place] [address] ([facility])([facility] Res Tm Red) [address] [place] [address] [facility])(Sco tt [facility] [place]) TELE CONSULT [id number] Notes Entered by: EDNA PATIÑO 14 Mar 2017 0704 ------- ------- ------- ------- -- AYANNA Rai 03/[address] [place] [address] [facility])([facility] Res [place]) [address] [place] [address] [facility])([facility]) OUTPATIENT [id number] Notes Entered by: BURT JOHNSON 14 Mar 2017 0913 ------- ------- ------- ------- -- GLB #2 BURT JOHNSON S 03/14 Released w/o Limitations [address] [place] [address] [facility])(N utritio nal Medicin e) [address] [place] [address] [facility])(Sco tt [facility] Red) OUTPATIENT [id number] Dr Matt hu steesau my visit to discuss additio n meds and/or refills ELENI RODRIGUES 03/22 Released w/o Limitations [address] [place] [address] [facility])([facility] Res Red) [address] [place] [address])([facility]) OUTPATIENT [id number] Notes Entered by: BURT JOHNSON 01 May 2017 1445 ------- ------- ------- ------- -- GLB #8 ROBYN JOHNSONY S 05/01 Released w/o Limitations [address] [place] [address] [facility])(N utritio nal Medicin e) [address] [place] [address] [facility])(Sco tt [facility] Res [place]) TELE CONSULT [id number] Notes Entered by: JULIA JAUREGUI 18 Sep 2017 0743 ------- ------- ------- ------- -- SX - SX of UTI / Yoha / - sgj ANDREWSTANSONIYA 09/18 Referred for Appointment [address] [place] [address] Group [employer])(S cott [facility] Res [place]m [place]) [address] [place] [address] [facility])(Sco tt [facility] [place]) OUTPATIENT [id number] Scolios is Issue REZA VILLALOBOS 12/06 Released w/o Limitations [address] [place] [address] Group [facility])(S cott [facility] Res [place]m [place]) [address] [place] [address] [facility])(Sco tt [facility] [place]) TELE CONSULT [id number] Notes Entered by: HOLLIS VILLALOBOS 13 Dec 2017 1828 ------- ------- ------- ------- -- Xray results REZA VILLALOBOS 12/14 Referred for Appointment [address] [place] [address] Group [facility]S cott [facility] Res [place]m [place]) [address] [place] [address] [facility]Sco tt [facility] [place]) TELE CONSULT [id number] Notes Entered by: Noni CAVAZOS 16 Jan 2018 1601 ------- ------- ------- ------- -- Network results [facility] 018 ALD REZA VILLALOBOS 01/16 Referred for Appointment [address] [place] [address] [facility]S cott [facility] Res [place]m [place]) [address] [place] [address] [facility])(Sco tt [facility] [place]) TELE CONSULT [id number] Notes Entered by: FADI WOODWARD 29 Jan 2018 0800 ------- ------- ------- ------- -- SX: Chest pain/ER Refusal /ER Req/Yoh a/444.9 624/LUZ Kim 01/[address] [place] [address] [facility])(S cott [facility] Res [place]m [place]) [address] [place] [address] [facility])(Sco tt [facility] Fam Res Tm [place]) OUTPATIENT [id number] intermi ttent chest pain x2 wks [phone] MEGA ROJO 01/29 Released w/o Limitations [address] [place] [address] Group [employer] VELEZ [facility])(S cott [facility] Res [place]m [place]) [address] [place] [address] [facility]Sco tt [facility] [place]) TELE CONSULT [id number] Notes Entered by: MARTINE JACOME 14 Feb 2018 1246 ------- ------- ------- ------- -- Echocar diogram results - F/U Appt - Cardiol ogy F/U/ Natalia/ [phone] - LUZ Robertson 02/[address] [place] [address] [facility])(S cott [facility] Res [place]m [place]) [address] [place] [address] Group [facility]Sco tt [facility] Tm Green) TELE CONSULT [id number] Notes Entered by: MARY MONROE 17 Mar 2018 0817 ------- ------- ------- ------- -- MedLUZ [place] 03/[address] [place] [address] Group [facility]S cott [facility] Res [place]m [place]) [address] [place] [address] [facility] TELE CONSULT [id number] Notes Entered by: Esau SHETTY 24 Mar 2018 0823 ------- ------- ------- ------- -- Office message REZA VILLALOBOS 03/24 Referred for Appointment [address] [place] [address] Group [facility]S [facility] Tm Blue) [address] [place] [address] [facility])([facility] TELE CONSULT [id number] Notes Entered by: LORETO DURAN 27 Mar 2018 1516 ------- ------- ------- ------- -- Record Request LUZ CASTRO 03/[address] [place] [address] Group [facility] B [facility])([facility] [address] [place] [address] Group [facility] B [facility])(Sco tt [facility] Res [place]m [place]) TELE CONSULT [id number] Notes Entered by: MARY MONROE 15 May 2018 1427 ------- ------- ------- ------- -- Med refLUZ Church 05/[address] [place] [address] Group [facility])(S cott [facility] Res [place]m [place]) [address] [place] [address] [facility] B [facility])(Sco tt [facility] Blue) TELE CONSULT [id number] Notes Entered by: Esau SHETTY 20 May 2018 1109 ------- ------- ------- ------- -- Office message LUZ CASTRO 05/[address] [place] [address] [facility])(S [facility] Tm Blue) [address] [place] [address])(Sco tt [facility] [place]) TELE CONSULT [id number] Notes Entered by: Esau SHETTY 09 Jun 2018 0923 ------- ------- ------- ------- -- Office message REZA VILLALOBOS 06/09 Referred for Appointment [address] [place] [address] Group [facility])(S [facility] Res [place]m [place]) [address] [place] [address] [facility])(Sco tt [facility] [place]) TELE CONSULT [id number] Notes Entered by: MARY MONROE 23 Jun 2018 0803 ------- ------- ------- ------- -- Medicat ion renewal REZA VILLALOBOS 06/23 Referred for Appointment [address] [place] [address] Group [facility]S cott [facility] Res [place]m [place]) [address] [place] [address] [facility] B [facility])(Sco tt [facility] Res [place]m [place]) OUTPATIENT [id number] annual check up for prescri ptions( RX) -is blood work require d for this apt? REZA VILLALOBOS 08/11 Released w/o Limitations [address] [place] [address] [employer] ([facility])(S cott [facility] Res [place]m [place]) [address] [place] [address] [employer] ([facility])(Sco tt [facility] Res Green) TELE CONSULT [id number] Notes Entered by: MELANY ALBARADO ON D 29 Sep 2018 0827 ------- ------- ------- ------- -- Rx Renewal /Natalia/Luis Carlos [phone] LUZ CASTRO 09/29 Referred for Appointment [address] [place] [address] [employer] ([facility])(S [facility] Res [place]m [place]) [address] [place] [address] [employer] [facility])(Sco tt [facility] [place]) TELE CONSULT [id number] Notes Entered by: Esau SHETTY 07 Nov 2018 0847 ------- ------- ------- ------- -- Rx refill LUZ CASTRO 11/07 Referred for Appointment [address] [place] [address] Group [employer] LAZOB ([facility])(S [facility] Res [place]m [place]) [address] [place] [address] [employer] ([facility])(Sco tt [facility] Blue) TELE CONSULT [id number] Notes Entered by: Esau SHETTY 31 Dec 2018 1405 ------- ------- ------- ------- -- Rx refill REZA VILLALOBOS 12/31 Released w/o Limitations [address] [place] [address] [employer] ([facility] Procedures Combined list of: 1) Procedures from Department of Veterans Affairs facilities going back up to thelast 18 months, not all VA non-surgical procedures are included; 2) All procedures from the Department of Defense facilities. Procedure Procedure Type Code Date Perfomer Comments Sourc e ONLINE ASSESS &MANAG SERV PROVIDE,A QUAL NONPHYS HCP TO AN ESTABLISHED PAT/GUARDIAN,NOT ORIGINAT FRM RELAT ASSESS &MANAG SERV PROVIDE W/IN THE PREV 7 DAYS,USE THE INTERNET/SIMILAR [employer] 06/09/2018 DoD TELE ASSESS & MGT SRV PROV QUAL NONPHYS HLTH CARE PRO TO EST PAT,PARENT,GUARD NOT ORIG REL ASSESS & MGT SRV PROV W/IN PREV 7 DAYS NOR LEAD ASSESS & MGT SRV/PX W/IN NXT 24 HR/SOON APT;5-10 MIN MED DIS 05/15/2018 DoD TELE ASSESS & MGT SRV PROV QUAL NONPHYS HLTH CARE PRO TO EST PAT,PARENT,GUARD NOT ORIG REL ASSESS & MGT SRV PROV W/IN PREV 7 DAYS NOR LEAD ASSESS & MGT SRV/PX W/IN NXT 24 HR/SOON APT;5-10 MIN MED DIS 03/27/2018 DoD TELE ASSESS & MGT SRV PROV QUAL NONPHYS HLTH CARE PRO TO EST PAT,PARENT,GUARD NOT ORIG REL ASSESS & MGT SRV PROV W/IN PREV 7 DAYS NOR LEAD ASSESS & MGT SRV/PX W/IN NXT 24 HR/SOON APT;5-10 MIN MED DIS 02/14/2018 DoD ELECTROCARDIOGRAM, ROUTINE ECG WITH AT LEAST 12 LEADS; WITH INTERPRETATION AND REPORT 01/29/2018 DoD TELE ASSESS & MGT SRV PROV QUAL NONPHYS HLTH CARE PRO TO EST PAT,PARENT,GUARD NOT ORIG REL ASSESS & MGT SRV PROV W/IN PREV 7 DAYS NOR LEAD ASSESS & MGT SRV/PX W/IN NXT 24 HR/SOON APT;5-10 MIN MED DIS 01/29/2018 DoD REMOVAL IMPACTED CERUMEN REQUIRING INSTRUMENTATION, UNILATERAL 12/09/2017 DoD TELE ASSESS & MGT SRV PROV QUAL NONPHYS HLTH CARE PRO TO EST PAT,PARENT,GUARD NOT ORIG REL ASSESS & MGT SRV PROV W/IN PREV 7 DAYS NOR LEAD ASSESS & MGT SRV/PX W/IN NXT 24 HR/SOON APT;5-10 MIN MED DIS 09/18/2017 DoD MEDICAL NUTRITION THERAPY; GROUP (2 OR MORE INDIVIDUAL(S)), EACH 30 MINUTES 05/01/2017 DoD MEDICAL NUTRITION THERAPY; GROUP (2 OR MORE INDIVIDUAL(S)), EACH 30 MINUTES 03/14/2017 DoD TELE ASSESS & MGT SRV PROV QUAL NONPHYS HLTH CARE PRO TO EST PAT,PARENT,GUARD NOT ORIG REL ASSESS & MGT SRV PROV W/IN PREV 7 DAYS NOR LEAD ASSESS & MGT SRV/PX W/IN NXT 24 HR/SOON APT;5-10 MIN MED DIS 11/12/2016 [facility] Internet Med Svc Qual Nonphys Healthcare Prof Estab Patient Internet Med Svc Qual Nonphys Healthcare Prof Estab Patient [id number] 06/11/2018 REZA VILLALOBOS [facility] Non-Physician Phone Call To Patient/Provider Brief (5-10min) Non-Physician Phone Call To Patient/Provider Brief (5-10min) [id number] 05/19/2018 ASHTYN VALVERDE [facility] Non-Physician Phone Call To Patient/Provider Brief (5-10min) Non-Physician Phone Call To Patient/Provider Brief (5-10min) [id number] 04/24/2018 LUZ CASTRO Non-Physician Phone Call To Patient/Provider Brief (5-10min) Non-Physician Phone Call To Patient/Provider Brief (5-10min) [id number] 02/14/2018 LUZ CASTRO Non-Physician Phone Call To Patient/Provider Brief (5-10min) Non-Physician Phone Call To Patient/Provider Brief (5-10min) [id number] 01/29/2018 LUZ CASTRO Cerumen Removal Left Ear Curette Cerumen Removal Left Ear Curette [id number] 12/09/2017 REZA VILLALOBOS Cerumen Removal Right Ear Curette Cerumen Removal Right Ear Curette [id number] 12/09/2017 REZA VILLALOBOS [facility] Non-Physician Phone Call To Patient/Provider Brief (5-10min) Non-Physician Phone Call To Patient/Provider Brief (5-10min) [id number] 09/18/2017 SONIYA HEART [facility] Medical Nutrition Therapy Group (2 or More Individual(s)) Medical Nutrition Therapy Group (2 or More Individual(s)) [id number] 05/02/2017 BURT JOHNSON S [facility] Medical Nutrition Therapy Group (2 or More Individual(s)) Medical Nutrition Therapy Group (2 or More Individual(s)) [id number] 03/14/2017 ELIZABETHBURT CANTU S [facility] Non-Physician Phone Call To Patient/Provider Brief (5-10min) Non-Physician Phone Call To Patient/Provider Brief (5-10min) [id number] 11/12/2016 LUZ CASTRO [facility] Social History Combined list of available smoking, tobacco, and other social history from Department of Defense and Veterans Affairs facilities. Social History Type Response Date Comment Sour e This section is an empty social history section. DoD
--- OUTSIDE RECORDS SUMMARY | 2025-03-26 11:22 | XMS_ITS | Referral Summary ---
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
--- OUTSIDE RECORDS SUMMARY | 2025-03-26 11:22 | XMS_ITS | Clinical Summary ---
Author Organization [facility] Address [address] [place] [address] Care Team Providers Care Biofuels Technology Manager Name Role Phone Paul Gaines MD Primary Care Provider Allergies Active Allergy Reactions Criticality Noted Date Comments Sulfa (Sulfonamide Antibiotics) Shortness of Breath/Wheezing High 06/02/2021 Trimethoprim Rash Medium 08/02/2011 Medications naproxen sodium (ALEVE) 220 mg Tablet Take 220 mg by mouth 1 time daily as needed for Pain, Moderate. Active cholecalciferol, Vitamin D3, 50 mcg (2,000 unit) TabletIndication s:Vitamin D deficiency Take 1 Tablet (2,000 Units) by mouth daily. 90 Tablet 1 06/09/2021 Active Synthroid 50 mcg tablet TAKE 1 TABLET DAILY 90 Tablet 3 03/30/2022 Active hydroCHLOROthiaz diego 25 mg tablet Take 25 mg by mouth daily. Active metoprolol tartrate (LOPRESSOR) 50 mg tablet Take 1 Tablet (50 mg) by mouth 2 times daily. 180 Tablet 1 05/14/2022 Active amLODIPine (NORVASC) 10 mg tablet Take 1 Tablet (10 mg) by mouth daily. 90 Tablet 1 05/14/2022 Active potassium chloride (KLOR-CON) 10 mEq Extended Release tablet Take 1 Tablet (10 mEq) by mouth daily with breakfast. 90 Tablet 1 05/16/2022 Active escitalopram oxalate (LEXAPRO) 5 mg tabletIndication s:Situational mixed anxiety and depressive disorder Take 1 Tablet (5 mg) by mouth daily. 90 Tablet 09/12/2022 Active ibuprofen (MOTRIN) 600 mg tablet TAKE 1 TABLET EVERY 6 HOURS NEEDED FOR MILD PAIN 20 Tablet 72 02/25/2023 Active Active Problems Problem Noted Date Diagnosed Date S/P reverse total shoulder arthroplasty, right 0 08/22/2022 Situational mixed anxiety and depressive disorde r 08/22/2022 Cataract extraction status of left eye 7 Immunizations Immunization Administration Dates Next Due (ADACEL/BOOSTRIX)(10 YR UP) TDAP VACCINE, 0.5ML, IM 05/22/2017 (PFIZER)(12 YR UP) COVID-19 VACCINE - EMERGENCY USE AUTHORIZATION, MRNA, [id number](PF) 30 MCG/0.3 ML IM SUSP 07/25/2021,02/25/2021,02/04/2021 (PNEUMOVAX 23)(50 YRS UP) PN EUMOCOCCAL POLYSACCHARIDE (PPV23) 0.5 ML, IM 11/13/2021,04/25/2021 (PREVNAR 13)(6 WKS UP) PNEUM OCOCCAL CONJUGATE (PCV13) 0.5 ML, IM 07/08/2020 (SHINGRIX)(50 YRS UP) ZOSTER VACCINE RECOMBINANT, 0.5 ML, IM 07/24/2019,05/22/2019 INFLUENZA VACCINE HIGH DOSE QUADRIVALENT 65 YR UP PF IM 08/30/2022,08/29/2021 INFLUENZA VACCINE QUADRIVALE NT 6 MOS UP CELL DERIVED PF IM 09/11/2019 Influenza Seasonal Unspecifi ed Formulation IM 09/01/2020 Influenza Vaccine High Dose 65+ Yrs IM 1 Family History Medical History Relation Name Comments Healthy Daughter Heart Disease Father Chinmay Chery 2010 Hypertension Father Chinmay Chery 2010 Hypertension Mother Janina Chery 2009 Melanoma Sister 4 [place] Healthy Son Relation Name Status Comments Brother 1 Alive Brother 2 Alive Brother 3 Alive Brother 4 Alive Brother 5 Alive Brother 6 Alive Daughter Alive Father Chinmay Chery Mother Janina Chery Sister 1 Alive Sister 2 Alive Sister 3 Alive Sister 4 [place] Alive Son Alive Social History Tobacco Use Types Packs/Day Years Used Date Smoking Tobacco: Never Smokeless Tobacco: Never Tobacco Cessation:Counseling Given: Not Answered Alcohol Use Standard Drinks/Week Comments Yes 1 (1 standard drink = 0.6 oz pur e alcohol) 1 glass weekly Financial Resource Strain Answer Date R ecorded How hard is it for you to pa y for the very basics like food, housing, medical care, and heating? Not hard at all 11/13/2021 Food Insecurity Answer Date Recorded In the past 12 months, have you worried that your food would run out before you had money to buy more? Never true 11/13/2021 In the past 12 months, did y ou run out of food and didn't have money to buy more? Never true 11/13/2021 Transportation Needs Answer Date Record ed In the past 12 months, has l ack of transportation kept you from medical appointments or from getting medications? 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 file Not on file Not on file Last Filed Vital Signs Vital Sign Reading Time Taken Comments Blood Pressure 128/80 08/22/2022 9:26 AM CDT Pulse 70 08/22/2022 9:26 AM CDT Temperature 36.1 C (97 F) 08/22/2022 9:26 AM CDT Respiratory Rate - - Oxygen Saturation 98% 08/22/2022 9:26 AM CDT Inhaled Oxygen Concentration - - Weight 71.2 kg (157 lb) 08/22/2022 9:26 AM CDT Height 161.9 cm (5' 3.75 ) 08/22/2022 9:26 AM CD T Body Mass Index 27.16 08/22/2022 9:26 AM CDT Plan of Treatment Health Maintenance Due Date Last Done Comments FIT-DNA Q 3 years 1999 FIT/FOBT Q 1 year 1999 Flex Sig/CT Colonography Q 5 years 1999 BREAST CANCER SCREENING 05/18/2023 05/18/20 22, 05/18/2022, 12/08/2021, Additional history exists INFLUENZA VACCINE (#1) 2024 2, 08/29/2021, 08/29/2021, Additional history exists COVID-19 Vaccine (2023-2 5 season) 2024 03/12/2022, 07/25/2021, 02/25/2021, Additional history exists OSTEOPOROSIS SCREENING 08/10/2025 08/10/2020 DTAP/TDAP/TD VACCINES (2 - T d or Tdap) 05/22/2027 05/22/2017 COLORECTAL SCREENING 11/04/2027 11/04/2017 Colorectal Cancer Screening 11/04/2027 RSV VACCINE (60+ or ) (1 - 1-dose 75+ series) 2029 ZOSTER VACCINE Completed 07/24/2019, 05/22/2019 PNEUMOCOCCAL VACCINE 50+ YEARS Completed 1 01/14/2021, 04/25/2021, 07/08/2020 Procedures Procedure Name Priority Date/Time Associated Diagnosis Comments MAMMO DIAG UNI RIGHT 3D MICHELLE W OR WO CAD Routine 05/18/2022 ENDOSCOPY, COLON, DIAGNOSTIC Routine 11/04/2017 from Last 3 Months or Most Recently Relevant to Health Maintenance Results * MAMMO DIAG UNI RIGHT 3D MICHELLE W OR WO CAD (05/18/2022) Anatomical Region Laterality Modality Breast Right Mammography us Abstract Provider MAMMO ORDERABLES Edited Result - Final * (ABNORMAL) ENDOSCOPY, COLON, DIAGNOSTIC (11/04/2017) us Abstract Provider GI PROCEDURE ORDERABLES Edited Result - Final from Last 3 Months or Most Recently Relevant to Health Maintenance Insurance [facility] MEDICARE PART A AND B Care Teams Biofuels Technology Manager Relationship Specialty Start Date End Date Paul Gaines MD [address] [id number] PCP - General Internal Medicine 09/19/23
--- OUTSIDE RECORDS SUMMARY | 2025-03-26 11:22 | XMS_ITS | Encounter Summary ---
Author Organization [facility] Address [address] [place] [address] Care Team Providers Care Wheel Aligner Name Role Phone Elen Bach PA-C Unavailable [phone] Rosanna Tran MD Primary Care Provider [phone] Paul Gaines MD Primary Care Provider [phone] Encounter Details Date Type Department Care Team (Late st Contact Info) Description 08/21/2022 [facility] [address] [place] [address] Sotero Mbcride MD [address] [address] ORTHOPEDIC SURGERY [place], [place] [id number] Social History Tobacco Use Types Packs/Day Years Used Date Smoking Tobacco: Never Smokeless Tobacco: Never Alcohol Use Standard Drinks/Week Comments Yes 2 (1 standard drink = 0.6 oz pure alcohol) Couple glasses of wine per month Hunger Vital Sign Answer Date Recorded Within the past 12 months, y ou worried that your food would run out before you got the money to buy more. Never true 07/25/20 22 Within the past 12 months, t he food you bought just didn't last and you didn't have money to get more. Never true 07/25/2022 Comments Unknown Sex and Gender Information Value Date Recorded Sex Assigned at Not on file Legal Sex Female 5:25 PM SUPPORT SERVICES TECH Gender Identity Not on file Sexual Orientation Not on file documented as of this encounter Miscellaneous Notes * Telephone Encounter - Magda Espinoza - 08/21/2022 8:07 AM CDT Pt would like someone to call in regards to pain medication and something for anxiety. Estefani Sabillon and [facility]. documented in this encounter Plan of Treatment Not on file documented as of this encounter Visit Diagnoses Not on filedocumented in this encounter Care Teams Wheel Aligner Relationship Specialty [place] [address] [phone] PCP - General Internal Medicine 06/18/22 11/05/22 Paul Gaines MD [address] [facility] [address] [place] [address] PCP - General Internal Medicine 11/06/22 Elen Bach, PA-C [address] [place] [address] 05/22/19 documented as of this encounter
--- OUTSIDE RECORDS SUMMARY | 2025-03-26 11:22 | XMS_ITS | Clinical Summary ---
Author Organization [facility] Address [address] [place] [address] Care Team Providers Care Veterinary X Ray Operator Name Role Phone Elen Bach PA-C Unavailable [phone] Paul Gaines MD Primary Care Provider [phone] Source Comments [facility],non-owned Affiliates and Associated Physician Practices is amultiple site organization consisting of ambulatory clinics and hospital sitesin [place], [place], [place] and [place]. This disclosure is being madepursuant to the Care Everywhere program and may not contain all information available regarding this patient. Last updated 18.[facility] Allergies Active Allergy Reactions Criticality Noted Date Comments Sulfa Drugs Other,Rash,Shortness of Breath High 04/23/2017 Trouble breathing Other reaction(s): Difficulty breathing, Rash, NOS, Unknown Other reaction(s): Rash, NOS, Rash, NOS Other reaction(s): Rash, NOS, Rash, NOS Sulfacetamide Unknown 11/07/2022 Trimethoprim Rash Medium 08/02/2011 Medications * Be aware that medications may not be up to date on this document. Alwaysverify current medications with the patient. amLODIPine (NORVASC) 10 MG tabletIndication s:Benign hypertension Take 1 tablet by mouth once daily 90 tablet 1 01/25/20 20 Active Additional Information Patient taking differently:10 mg Oral2 TIMES DAILY, Reported on 11/07/2022 hydroCHLOROthiaz diego (HYDRODIURIL) 25 MG tabletIndication s:Benign hypertension Take 1 tablet by mouth once daily 90 tablet 4 01/25/20 20 Active metoprolol tartrate (LOPRESSOR) 50 MG tabletIndication s:Benign hypertension Take 1 tablet by mouth 2 times daily 180 tablet 3 01/25/20 20 Active levothyroxine (Synthroid) 50 MCG tablet Take 1 (one) tablet by mouth daily before breakfast 10/24/20 21 Active Probiotic Product (PROBIOTIC PO) Take 2 tablets by mouth once daily Active escitalopram (Lexapro) 5 MG tablet Take 1 (one) tablet by mouth once daily 08/22/20 22 Active vitamin D3 (Cholecalciferol ) (25 MCG) 1000 UNIT capsule Take 1 (one) capsule by mouth once daily Active pregabalin (Lyrica) 100 MG capsule Take 1 (one) capsule by mouth as directed 10/15/20 22 Active potassium chloride ER (Micro-K) 10 MEQ capsule Take 1 (one) capsule by mouth daily with breakfast 10/01/20 22 Active meloxicam (Mobic) 15 MG tablet Take 1 (one) tablet by mouth once daily 30 tablet 3 01/28/20 23 Active acetaminophen (Tylenol) 500 MG tablet Take 1 (one) tablet by mouth every 4 hours as needed for Fever or Pain Maximum allowable Acetaminophen amount = 4 Grams (4000 mg) / 24 hours. 120 tablet 3 02/05/20 23 Active Additional Information Patient taking differently: 500-1,000 mgOralEVERY 6 HOURS PRN, Fever, Pain, Maximum allowable Acetaminophen amount = 4 Grams (4000 mg) / 24 hours., Reported on 05/01/2023 loteprednol (Lotemax) 0.5 % ophthalmic suspension Instill 1 (one) drop to 2 (two) drops into both eyes as directed 01/11/20 23 Active ibuprofen (Motrin) 600 MG tablet Take 1 (one) tablet by mouth every 8 hours as needed 02/26/20 23 Active fluticasone propionate (Flonase) 50 MCG/ACT nasal spray [place] 1 (one) spray to 2 (two) sprays into each nostril 2 times daily as needed 02/20/20 23 Active ALPRAZolam (Xanax) 0.5 MG tablet Take 1 (one) tablet by mouth as directed 04/25/20 23 Active scopolamine (Transderm-Scop) 1 MG patch Apply 1 (one) patch to skin every 72 hours as needed 04/25/20 23 Active linaCLOtide (Linzess) 145 MCG capsule Take 1 (one) capsule by mouth daily before breakfast Active gabapentin (Neurontin) 300 MG capsule Take 1 (one) capsule by mouth 3 times daily 09/10/20 22 Active gabapentin (Neurontin) 600 MG tabletIndication s:Brachial plexopathy TAKE 1 TABLET THREE TIMES A DAY 90 tablet 11 11/07/20 23 Active Active Problems Problem Noted Date Diagnosed Date S/P reverse total shoulder arthroplasty, right 0 08/22/2022 Situational mixed anxiety and depressive disorde r 08/22/2022 Shoulder pain 08/08/2022 Arthralgia of hip 08/08/2022 Elevated white blood cell count, unspecified 06/2022 Encntr for general adult medical exam w/o abnorm al findings 08/08/2022 Osteoarthritis of hand 08/08/2022 Nuclear nonsenile cataract 08/08/2022 Routine general medical exam ination at a health care facility 08/08/2022 Positive antinuclear antibody 08/08/2022 Postmenopausal atrophic vaginitis 08/08/2022 Unspecified urinary incontinence 08/08/2022 Status post reverse arthroplasty of right should er 07/24/2022 Other abnormal and inconclus kathy findings on diagnostic imaging of breast 05/18/2022 Abnormal findings on diagnostic imaging of breas t 12/08/2021 Screening for neoplasm performed 12/06/2021 Essential (primary) hypertension 06/09/2018 Right hip pain 05/05/2018 Trochanteric bursitis of right hip 05/05/2018 Strain of muscle of right hip 05/05/2018 Cataract extraction status of left eye 7 S/P cataract extraction, left 05/21/2017 Leukocytosis 09/17/2016 06/26/2023 Overview (06/26/2023): Elevated white blood cell count, unspecified;Recorded Elsewhere: No Location: [facility] Source: EHR Chronic: N Practice ID: [id number] Billable Time: 10:30:00 AM Encntr for water pollution specialist exam (general) (routine) w/o abn findings 09/12/2015 Encounter for screening for malignant neoplasm o f rectum 09/12/2015 Atrophic vaginitis 09/09/2014 06/26/2023 Overview (06/26/2023): Atrophic vaginitis;Recorded Elsewhere: No Location: [facility] Source: EHR Chronic: N Practice ID: [id number] Billable Time: 08:30:00 AM Encounter for routine gynecological examination 09/02/2013 Screening for malignant neoplasm of cervix 08/07 Immunizations Immunization Administration Dates Next Due INFLUENZA VACCINE, TRIV. (AF LURIA, FLUZONE TRIVALENT; 6MO+) (IIV3) 09/01/2020 INFLUENZA VACCINE 08/30/2022 INFLUENZA VACCINE, CELL CULT URE, QUADR. (FLUCELVAX QUADRIVALENT; 6MO+) (CCIIV4) 09/11/2019,09/11/2019 INFLUENZA VACCINE, HIGH-DOSE , QUADR. (FLUZONE HIGH-DOSE QUADRIVALENT; 65Y+), 0.7 ML (HD-IIV4) 08/29/2021,04/25/2021 PNEUMOCOCCAL PPSV23 11/13/2021,04/25/2021 Pneumococcal Pcv13 Conj 07/08/2020 TDAP (7yrs+) 05/22/2017 Zoster Hzv Vacc Recombinant Inj Im 07/24/2019, Family History Medical History Relation Name Comments Heart Disease Father Macular Degeneration Mother Cancer - Skin, Melanoma Sister 1 Cataract Sister 1 Macular Degeneration Sister 2 Relation Name Status Comments Father Mother Sister 1 Sister 2 Social History Tobacco Use Types Packs/Day Years Used Date Smoking Tobacco: Never Smokeless Tobacco: Never Tobacco Cessation:Counseling Given: Not Answered Alcohol Use Standard Drinks/Week Comments Not Currently 2 (1 standard drink = 0.6 oz [...] on file Legal Sex Female 5:25 PM ALL ROUND LOGGER Gender Identity Not on file Sexual Orientation Not on file Last Filed Vital Signs Vital Sign Reading Time Taken Comments Blood Pressure 118/54 07/25/2022 9:12 AM CDT Pulse 66 07/25/2022 9:13 AM CDT Temperature 36.5 C (97.7 F) 07/25/2022 7:54 AM CDT Respiratory Rate 16 07/25/2022 7:54 AM CDT Oxygen Saturation 96% 07/25/2022 9:13 AM CDT Inhaled Oxygen Concentration - - Weight 69.9 kg (154 lb) 09/09/2023 11:52 AM CDT Height 162.6 cm (5' 4 ) 09/09/2023 11:52 AM CDT Body Mass Index 26.43 09/09/2023 11:52 AM CDT Plan of Treatment Health Maintenance Due Date Last Done Comments BONE DENSITY TESTING 1955 COLOGUARD (AGES 45-75) - COLON CA SCREENING 1954 COLON MONITORING 1954 COLONOSCOPY - COLON CA SCREENING [address] CT COLONOGRAPHY - COLON CA SCREENING 1954 FLEX SIG - COLON CA SCREENING 1954 LIPID TESTING 1955 MEDICARE AWV 12 MONTHS 1955 HEPATITIS C SCREENING 05/31/1972 Colorectal Cancer Screening 09/09/2015 FIT - COLON CA SCREENING 09/09/2015 09/09/2014 SCREENING FOR DIABETES 09/09/2023 MAMMOGRAM 05/18/2024 05/18/2022 COVID-19 VACCINE ( season) 2024 07/25/2021, 02/25/2021, 02/04/2021 DEPRESSION SCREENING 12/02/2024 INFLUENZA VACCINE (Season Ended) 2025 08/30/2022, 08/29/2021, 04/25/2021, Additional history exists DTAP/TDAP/TD VACCINES (2 - Td or Tdap) 05/22/2027 05/22/2017 Respiratory Syncytial Virus (RSV) Vaccine Pt: or over 60 yrs (1 - 1-dose 75+ series) 2029 ZOSTER VACCINE Completed 07/24/2019, 05/22/2019 PNEUMOCOCCAL VACCINE 50+ Completed 021, 04/25/2021, 07/08/2020 HEPATITIS B VACCINE Aged Out No longe r eligible based on patient's age to complete this topic HIB VACCINE Aged Out No longer eligi ble based on patient's age to complete this topic HPV VACCINE Aged Out No longer eligi ble based on patient's age to complete this topic MENINGOCOCCAL (Group B) VACCINE SHARED DECISION-MAKING Aged Out No longer eligible based on patient's age to complete this topic MENINGOCOCCAL GROUPS A/C/Y/W VACCINE Aged Out No longer eligible based on patient's age to complete this topic Medical Devices Implanted Type Area [employer] Device Identifier Shelf Expiration Date Model / Serial / Lot Screw Bsplt 35mm Arthx Shldr Cntr Mdlr Implanted:Qty: 1 on 07/24/2022 by Sotero Mcbride MD at [facility] Right: Shoulder [employer] 10/31/2026 AR-9561-35 S / / [id number] Bsplt Glnd 24mm Arthx +4mm Shldr Mdlr Implanted:Qty: 1 on 07/24/2022 by Sotero Mcbride MD at [facility] Right: Shoulder [employer] 05/01/2024 AR-9560-24 -4 / / [id number] Sphr Glnd 36mm 24mm +4mm Shldr Ltrlz Implanted:Qty: 1 on 07/24/2022 by Sotero Mcbride MD at [facility] Right: Shoulder [employer] 10/01/2026 AR-9564-24 36-LAT / / [id number] [employer] Modular Glenoid System, Peripheral Screw, Locking 5.5 X 36mm Implanted:Qty: 1 on 07/24/2022 by Sotero Mcbride MD at [facility] Right: Shoulder [employer] 08/31/2025 AR-9563-36 / / [id number] Screw 5.5mm 20mm Lck Gala Strl Bone Implanted:Qty: 1 on 07/24/2022 by Sotero Mcbride MD at [facility] Right: Shoulder [employer] 12/01/2026 AR-9563-20 / / [id number] Screw 5.5mm 32mm Lck Mdlr Glnd Gala Implanted:Qty: 1 on 07/24/2022 by Sotero Mcbride MD at [facility] Right: Shoulder [employer] 08/01/2026 AR-9563-32 / / [id number] Screw 5.5mm 16mm Lck Gala Strl Bone Implanted:Qty: 1 on 07/24/2022 by Sotero Mcbride MD at [facility] Right: Shoulder [employer] 12/01/2026 AR-9563-16 / / [id number] Stem Hum 95mm Set Spl Mnblck Prox Lazaro Implanted:Qty: 1 on 07/24/2022 by Sotero Mcbride MD at [facility] Right: Shoulder [employer] 08/01/2025 AR-9501-05 -135CPC / / [id number] Ins Hum 36mm [employer]vers +3mm Sm Implanted:Qty: 1 on 07/24/2022 by Sotero Mcbride MD at [facility] Right: Shoulder [employer] 08/31/2026 [id number]-0 [id number] Insurance MEDICARE [facility] MEDICARE MEDICARE MEDICARE [facility] Advance Directives * Full Code (Latest Code Status on File) Date Activated Date Inactivated Comments 07/24/2022 6:39 PM 07/25/2022 12:12 PM Care Teams Veterinary X Ray Operator Relationship Specialty Start Date End Date Paul Gaines MD [address] [place] [id number] PCP - General Internal Medicine 11/06/22 Elen Bach, PADaneC [address] [place] [address] 05/22/19
--- OUTSIDE RECORDS SUMMARY | 2025-03-26 11:22 | XMS_ITS | Clinical Summary ---
Author Organization [facility] Address [address] [place] [address] Care Team Providers Care Metal Furniture Glazier Name Role Phone Sharath Alvarez DO Primary Care Provider [phone] Social History Tobacco Use Types Packs/Day Years Used Date Smoking Tobacco: Never Assessed Comments Unknown Sex and Gender Information Value Date Recorded Sex Assigned at Not on file Legal Sex Female 2:02 PM PLUSH WEAVER Gender Identity Not on file Sexual Orientation Not on file Plan of Treatment Health Maintenance Due Date Last Done Comments Colorectal Cancer Screening Colonoscopy (10 Years) 1954 Hepatitis C 1972 DTaP, Tdap and Td Vaccines ( 1 - Tdap) 1973 Mammogram Screening 1994 Pneumococcal Vaccine: 50+ Ye ars (1 of 1 - PCV) 2004 Zoster Vaccines (1 of 2) 2004 Dexa Scan (General) 2019 COVID-19 Vaccine ( - 2023-2 5 season) 2024 PHQ-2 (Physician [place]) 12/02/2024 RSV Immunization or 60+ Years (1 - 1-dose 75+ series) 2029 Meningococcal B Vaccine Aged Out No l onger eligible based on patient's age to complete this topic Meningococcal Vaccine Aged Out No cece demian eligible based on patient's age to complete this topic RSV Immunizations Under 20 Months Aged Out No longer eligible based on patient's age to complete this topic Insurance BLUE CROSS BLUE SHIELD [employer] BLUE [facility] Care Teams Metal Furniture Glazier Relationship Specialty Start Date End Date Sharath Alvarez DO [address] [address] PCP - General FAMILY PRACTICE 01/30/18
--- OUTSIDE RECORDS SUMMARY | 2025-03-26 11:22 | XMS_ITS | Data Portability ---
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 Patient will come back in a year unless there are new symptoms. Not available 06/01/2022 10:49:08 Plan of Treatment Reminders Order Date Submit Date Provider Last Modified By Organization Details Last Modified Time Details Appointments None recorded. Lab testoster one, total, serum [employer], [address], [place], [address], 17:40:49 Referral None recorded. Procedures None recorded. Surgeries None recorded. Imaging None recorded. Medication Orders Valtrex 500 mg tablet [address] [id number], [address] , [place], [place], [phone], 23:17:14 Patient TargetsNo targets recorded. Patient InstructionsNo instructions recorded. Reason for Referral None Reported. 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 2 14:16:05 Screenin g for malignan t neoplasm of rectum Completed 201605/31/2022 Encounte r for screenin g for malignan t neoplasm of rectum;P ractice ID: 0001 Terri Martinez [facility] 2 14:16:05 Speciali zed medical examinat ion Completed 201205/31/2022 Gynecolo gical Examinat ion;Daniel rded Elsewher e: No Locat ion: [facility] S ource: EHR Etl Developer meenakshi: N Mohinderti ce ID: 0001 Hema lable Time: 09:30:00 AM Terri Martinez [facility] 2 14:16:05 Cervical , vaginal and vulval inflamma tory diseases [id number] Completed 201108/12/2012 Unspecif ied inflamma tory disease of cervix, vagina, and vulva;Re corded Elsewher e: No Locat ion: [facility] S ource: EHR Etl Developer meenakshi: N Mohinderti ce ID: 0001 Hema lable Time: 03:15:00 PM Not Available [facility] 0 17:32:[address] Concept Completed 201705/31/2022 Encntr for general adult medical exam w/o abnormal findings ;Recorde d Elsewher e: No Locat ion: [facility] S ource: EHR Etl Developer meenakshi: N Practi ce ID: 0001 Hema lable Time: 08:30:00 AM Terri Martinez [facility] 2 14:16:05 Screenin g for malignan t neoplasm of cervix Completed 201005/31/2022 Screenin g for malignan t neoplasm s of the cervix;R ecorded Elsewher e: No Locat ion: [facility] S ource: EHR Etl Developer meenakshi: N Practi ce ID: 0001 Hema lable Time: 08:30:00 AM Terri Martinez null, [facility] 2 14:16:05 Atrophic vaginiti s [id number] Completed 201305/31/2022 Atrophic vaginiti s;Record ed Elsewher e: No Locat ion: Candice leiva [facility] S ource: EHR Etl Developer meenakshi: N Mohinderti ce ID: 0001 Hema lable Time: 08:30:00 AM Terri Martinez [facility] 2 14:16:05 Micturit ion finding Completed 201505/31/2022 Unspecif ied urinary incontin ence;Rec orded Elsewher e: No [facility] S ource: EHR Etl Developer meenakshi: N Mohinderti ce ID: 0001 Hema lable Time: 10:30:00 AM Terri Martinez [facility] 2 14:16:05 Adult health examinat ion Completed 201008/12/2012 Routine Medical Exam;Rec orded Elsewher e: No Locat ion: Candice leiva [facility] S ource: EHR Etl Developer meenakshi: N Mohinderti ce ID: 0001 Hema lable Time: 08:30:00 AM Terri sagastume [facility] 2 14:16:05 Adult health examinat ion Completed 201305/31/2022 ROUTINE MEDICAL EXAM;Rec orded Elsewher e: No Locat ion: Candice leiva [facility] S ource: EHR Etl Developer meenakshi: N Mohinderti ce ID: 0001 Hema lable Time: 08:30:00 AM Terri sagastume [facility] 2 14:16:05 Speciali zed medical examinat ion Completed 201008/12/2012 Gynecolo gical Examinat ion;Daniel rded Elsewher e: No Locat ion: Caryn abbie [facility] S ource: EHR Etl Developer meenakshi: N Mohinderti ce ID: 0001 Hema lable Time: 08:30:00 AM Terri Martinez [facility] 2 14:16:05 Screenin g for malignan t neoplasm of rectum Completed 201008/12/2012 Screenin g for malignan t neoplasm s of the rectum;R ecorded Elsewher e: No Locat ion: [facility] S ource: EHR Etl Developer meenakshi: N Practi ce ID: 0001 Hema lable Time: 08:30:[address] [facility] 2 14:16:05 Blood leukocyt e number above referenc e range [id number] Completed 201505/31/2022 Elevated white blood cell count, unspecif ied;Daniel rded Elsewher e: No Locat ion: [facility] S ource: EHR Etl Developer meenakshi: N Practi ce ID: 0001 Hema lable Time: 10:30:00 AM Terri Martinez [facility] 2 14:16:05 Problem Notes None recorded. Procedures Surgical History Date Name Laterality Status Provider Name and Address Organization Details Recorded Time 12/02/19 22 Date of Last Mammogram completed [facility] 06/01/2022 10:58:24 12/02/19 21 Breast reduction completed [facility] 06/01/2022 11:03:07 12/02/19 20 complete repair of rotator cuff completed [facility] 06/01/2022 11:03:26 12/02/18 90 repair of urinary bladder completed [facility] 06/01/2022 11:03:43 12/02/18 82 Total Hysterectomy completed [facility] 06/01/2022 11:02:55 Imaging Results None recorded. Procedure Notes None recorded. Medical Equipment None Reported. Allergies Allergen ID Allergen Name Allergen Category Reaction Reaction Severity Criticality Documentation Date Start Date Code Code System Note Provider Name and Address Organization Details Recorded Time 30212 sulfameth oxazole medicatio n rash Not available Not available 11/18/2020 31514 RxNorm React ion: rash; Comme nt: [facility]; Not Available [facility] 0 14:20:41 95004 trimethop rim medicatio n rash Not available Not available 11/18/2020 15021 RxNorm React ion: rash; Comme nt: [facility]at [facility]; Not Available [facility] 0 14:20:41 Medications Name Sig Start Date Stop Date Status Note LastModified by Organization Details LastModified Time hydrocodo ne 5 mg-acetam inophen 325 mg tablet 06/01 completed Not Available Not Available Not Available potassium chloride ER 10 mEq tablet,ex tended release active Not Available Not Available Not Available amlodipin e 5 mg tablet take 1 tablet by oral route every day 10/06 completed Prescrib ed Elsewher e: Yes Loca tion: [facility]aryn abbie [facility] odify By: josy rodriguez DateTime : 10/01/20 17 08:30:00 AM Not Available Not Available Not Available omeprazol e 40 mg capsule,d elayed release take 1 capsule by oral route every day before a meal 10/06 completed Prescrib ed Elsewher e: Yes Loca tion: [facility] odify By: josy amatoer DateTime : 10/01/20 17 08:30:00 AM Not Available Not Available Not Available Norvasc 2.5 mg tablet take 1 tablet by oral route every day 06/01 completed Prescrib ed Elsewher e: Yes Loca tion: [facility] odify By: josy huntunter DateTime : 10/06/20 18 08:30:00 AM Not Available Not Available Not Available cefadroxi l 500 mg capsule 06/01 completed Not Available Not Available Not Available metoclopr amide (bulk) powder 10/06 completed Prescrib ed Elsewher e: Yes [facility] odify By: josy huntunter DateTime : 08/12/20 12 08:30:00 AM Not Available Not Available Not Available Lipitor 40 mg tablet take 1 tablet by oral route every day 10/06 completed Prescrib ed Elsewher e: Yes Loca tion: [facility] odify By: josy rodriguez DateTime : 10/01/20 17 08:30:00 AM Not Available Not Available Not Available betametha sone valerate 0.1 % topical cream apply by topical route every day a thin layer to the affected area(s) 09/02 completed Prescrib ed Elsewher e: No Locat ion: [facility] odify By: marla andrews DateTime : 02/20/20 12 03:15:00 PM Not Available Not Available Not Available amlodipin e 10 mg tablet active Not Available Not Available Not Available Lasix 20 mg tablet take 1 tablet by oral route every day 08/07 completed Prescrib ed Elsewher e: Yes Loca tion: [facility] odify By: silvia rodriguez DateTime : 08/03/20 11 10:11:06 PM Not Available Not Available Not Available metoprolo l tartrate 50 mg tablet active Not Available Not Available Not Available Synthroid 50 mcg tablet active Not Available Not Available Not Available Valtrex 1 gram tablet take 1 tablet by oral route every 24 hours 2017 active Prescrib ed Elsewher e: No Locat ion: [facility] odify By: kalyani andrews DateTime : 10/09/20 18 10:06:20 AM Not Available Not Available Not Available Valtrex 500 mg tablet Take 1 tablet twice a day by oral route for 3 days. 2021 active Not Available Not Available Not Avai lable hydrochlo rothiazid e 25 mg tablet active Not Available Not Available Not Available ibuprofen 600 mg tablet active Not Available Not Available Not Available Premarin 0.625 mg/gram vaginal cream insert (1G) by vaginal route every other day for 1 month then as needed 10/01 completed Prescrib ed Elsewher e: No Locat ion: [facility] odify By: louis rodriguez DateTime : 09/12/20 15 11:30:00 AM Not Available Not Available Not Available Premarin 0.3 mg tablet take 1 tablet (0.3MG) by oral route every day for 21 consecut kathy days, followed by 7 days off 08/12 completed Prescrib ed Elsewher e: No Locat ion: [facility] odify By: alexandria Franco nter DateTime : 08/03/20 11 10:11:06 PM Not Available Not Available Not Available Vesicare 5 mg tablet take 1 tablet by oral route every day 06/01 completed Prescrib ed Elsewher e: Yes Loca tion: [facility] odify By: virgil Franco nter DateTime : 08/12/20 12 08:30:00 AM Not Available Not Available Not Available Rohini 30 mg/5 mL oral suspensio n 10/06 completed Prescrib ed Elsewher e: Yes Loca tion: [facility] odify By: josy rodriguez DateTime : 08/03/20 11 10:11:06 PM Not Available Not Available Not Available Bystolic 2.5 mg tablet take 2 tablet by oral route every day 10/06 completed Prescrib ed Elsewher e: Yes Loca tion: [facility] odify By: josy rodriguez DateTime : 08/03/20 11 10:11:06 PM Not Available Not Available Not Available Vitamin D3 125 mcg (5,000 unit) tablet Take by oral route. active Not Available Not Available No t Available metoprolo l suc 100 mg-hydroc hlorothia zide 12.5 mg tablet,ex t.rel 24 hr take 1 tablet by oral route every day 06/01 completed Prescrib ed Elsewher e: Yes [facility] By: josy rodriguez DateTime : 10/06/20 18 08:30:00 AM Not Available Not Available Not Available Vitals Date Recorded Body height Body mass index (BMI) Body weight Provider Name and Address Organization Details Last Updated DateTime 06/01/2022 160.02 cm 28.3 kg/m2 22061.78 g Terri CAUSEY - M [facility] 06/01/2022 10:52:38 Date Recorded Systolic blood pressure Diastolic blood pressure Provider Name and Address Organization Details Last Updated DateTime 06/01/2022 122 mm[Hg] 78 mm[Hg] Hanna Archibald [facility]- [address], [place], [address], [facility] 06/04/2022 23:17:14 Social History Question Answer Notes LastModified by Organizat ion Details LastModified Time Tobacco Smoking Status Never Smoker Terri Martinez tanika, [facility] 06/01/2022 11:02:17 What Is Your Level Of Alcohol Consumption? Occasional Information not available 06/01/2022 Are You Blind Or Do You Have Difficulty Seeing? No Information not available 06/01/2022 What Is Your Level Of Caffeine Consumption? Occasional Information not available 06/01/2022 Are You Deaf Or Do You Have Serious Difficulty Hearing? No Information not available 06/01/2022 What Type Of Diet Are You Following? REGULAR Information not available 06/01/2022 Do You Use Your Seat Belt Or Car Seat Routinely? Yes Information not available 06/01/2022 Do You Have Smoke And Carbon Monoxide Detectors In Your Home? Yes Information not available 06/01/2022 Do You Feel Stressed (tense, Restless, Nervous, Or Anxious, Or Unable To Sleep At Night)? [id number] Information not available 06/01/2022 Do You Use Sunscreen Routinely? Yes Information not available 06/01/2022 Sex: Unknown Functional Status Question Answer Note LastModified by Organizat ion Details LastModified Time Do you have difficulty walking or climbing stairs? No Information not available 06/01/2022 Are you able to walk? YESWOREST Information not available 06/01/2022 Are you able to care for yourself? Yes Information not available 06/01/2022 Do you have difficulty dressing or bathing? No Information not available 06/01/2022 What is your exercise level? Moderate Information not available 06/01/2022 Mental Status None recorded. Family History Relationship Description Onset Age of this Age Resolved Age Notes LastModified by Organization Details LastModified Time Maternal Grandmother Malignant tumor of ovary Not available 2021 11:01:30 Father Diabetes mellitus Not available 2021 11:01:37 Mother Hypertensive disorder Not available 2021 11:01:42 Medical History Condition Response Thyroid Problems Y Hypertension Y Gynecological History Statement/Question Response Date of Last Mammogram 12/02/2021 STIs/STDs Y HPV Vaccine N Current Control Method Hysterectom y If Post Menopausal, Age at Menopause 31 Sexually Active? N Date of DEXA bone scan 11/04/2018 Date of Last Pap Smear Sexual Problems? N Desired Control Method Sterilizati on LMP Unknown Obstetrics History GPAL:G 2 P 0 0 0 2 Type Value Living 2 Total 2 Past Encounters Encounter ID Performer Location Encounter Start Date Encounter Closed Date Diagnosis/Indication Diagnosis SNOMED-CT Code Diagnosis ICD10 Code Diagnosis Note [id number] Hanna Archibald [facility] [address] [address] 06/01/2022 09:54:04 06/18/2022 16:03:11 Gynecologic examination 19058401 Z01.419 Take Calcium with Vitamin D 12-1500mg daily. Do monthly self breast exams. It is advised to get annual flu shot in the fall and she could obtain at [facility] or [facility] clinic. If you haven't received the Tdap vaccine in the last 10 years you should obtain one as well. Have mammogram yearly, bone density every 2-3 years and colonoscop y every 5-10 years depending on findings and history. Engage in daily exercise of low impact aerobic exercise 45-60 minutes 4-5 times weekly. Avoid tobacco and illicit drugs as well as using moderation with alcohol intake less than 1-2 8 oz beverages daily. This lifestyle behavior pattern will lead to less health conditions and longer life span. If BMI greater than 25 weight watchers or dietary consult advised. Questions have been answered. Patient appears to understand instructio ns, but if you have any further questions call or respond to this email Pap/hpv USPSTF recommends against screening for cervical cancer in women older than 65yo, those who've had a hysterecto my for non-cancer indication s, & who have had adequate prior screening & are not otherwise at high risk for cervical cancer. STD Screen declined monogamous relationsh ipGenetic Screen discussedC olon Screen UTD PCPDexa Screen UTD PCP/Specia listRoutin e Labs UTD PCP Genital he rpes simplex [id number] A60.9 RF for PRN use sentOutbre aks are usually 0-2 outbreaks per year. Reduced libido [id number] R 68.82 N95.1 Will get baseline Total T-levels.T rial of Testim gel sent to [facility].W e agreed to return in 4wks. Counseled on medication R/B's, Most common side effects, & use. All questions were answered to patient satisfacti on. Health Concerns Section Related Observation LastModified by Organization Detai ls LastModified Time None Recorded Concern Status LastModified by Organization Details LastModified Time None Recorded Advance Directives Directive None Recorded Payers Encounter Date Sequence Insurance Name Policy Number Policy Franco Covered Member ID Franco Member ID Guarantor Name 06/01/2022 1 [place] Margaret Ocasio [id number] Margaret Ocasio 06/01/2022 2 [employer] - FOR LIFE (MEDICARE SUPPLEMENT) Margaret Ocasio [id number] Margaret Ocasoi Notes Date Note Type Note Provider Name and Address Organization Details Recorded Time 06/01/2022 text/html Annual Rn Cvicu Post-MenopausalRe ported bypatient.Menopau tejinder Symptoms:no menopausal symptoms; normal vaginal lubrication; Decreased muscle mass and having issues with muscle tears that may require surgery. Seeing specialist for this issue. Trying to exercise/eat well/other to help this issue & avoid surgery if possible. Vaginal Bleeding:history of menopause having occurred; no history of post menopausal bleeding Urinary Symptoms:no hematuria; no incontinence; no nocturia; no urinary frequency Vulva:no genital lesion; no vulvar atrophy Vagina:normal vaginal discharge; no vaginal atrophy Breast:no breast lump; no nipple discharge; no breast pain Sexual Complaints:no sexual complaints;decrea sed libido Psychological Symptoms:no depression; no anxiety Preventive Measures:encourag e regular mammograms starting age 40; encourage self breast examination; encourage regular exercise; encourage no tobacco use; mammogram performed within the past year; history of recent colonoscopy TYRELL CaalNP-BC [address], [place], [address], [facility] 06/04/2022 23:25:45 OBGyn Episode Ob Episode Information Episode Created Date Number of Fetuses Patient Bloodtype Patient rh Status Prepregnancy Weight lbs Domestic Partner Domestic Partner Phone Father Name Admin Assistant Status 06/01/20 22 1 CLOSED Fetus Data First Name Last Name Admitted to NICU Weight (g) Sex Living Outcome Pediatric Complications Fetus ID Race Codes Race Delivery Type M [id number] Vaginal Delivery Bernardino Calculation Initial Bernardino Date Initial Exam Date Initial Exam Provider Initial Ultrasound Date Last Menstrual Period Date Ultra Sound Weeks Gestation 0 Eighteen To Twenty Week Bernardino Update Ultra Sound Date Fundal Height At Umbil Quickening Date Ultra Sound Latest Weeks Gestation Final Bernardino Confirmed By Final Bernardino Confirmed Date Final Bernardino Date Ultra Sound Latest Days Gestation 0 0 Menstrual History Last Menstrual Date Menses Monthly On Bcp Conception Prior Menses Frequency Hcg Plus Date Menarche Onset Age Delivery Information Delivery Date Delivery Type Labor Anesthesia Weeks Gestation Incision Type Labor Labor Length Hrs Delivered By Post Complications Tubal Sterilization Discharge Date Comments 9 Discharge Information Feeding Method Contraceptive Method Maternal HG B and HCT Levels Ob Episode Information Episode Created Date Number of Fetuses Patient Bloodtype Patient rh Status Prepregnancy Weight lbs Domestic Partner Domestic Partner Phone Father Name Admin Assistant Status 06/01/20 22 1 CLOSED Fetus Data First Name Last Name Admitted to NICU Weight (g) Sex Living Outcome Pediatric Complications Fetus ID Race Codes Race Delivery Type F [id number] Vaginal Delivery Bernardino Calculation Initial Bernardino Date Initial Exam Date Initial Exam Provider Initial Ultrasound Date Last Menstrual Period Date Ultra Sound Weeks Gestation 0 Eighteen To Twenty Week Bernardino Update Ultra Sound Date Fundal Height At Umbil Quickening Date Ultra Sound Latest Weeks Gestation Final Bernardino Confirmed By Final Bernardino Confirmed Date Final Bernardino Date Ultra Sound Latest Days Gestation 0 0 Menstrual History Last Menstrual Date Menses Monthly On Bcp Conception Prior Menses Frequency Hcg Plus Date Menarche Onset Age Delivery Information Delivery Date Delivery Type Labor Anesthesia Weeks Gestation Incision Type Labor Labor Length Hrs Delivered By Post Complications Tubal Sterilization Discharge Date Comments 4 Discharge Information Feeding Method Contraceptive Method Maternal HG B and HCT Levels Ob Episode Information Episode Created Date Number of Fetuses Patient Bloodtype Patient rh Status Prepregnancy Weight lbs Domestic Partner Domestic Partner Phone Father Name Admin Assistant Status 06/01/20 22 1 CLOSED Fetus Data First Name Last Name Admitted to NICU Weight (g) Sex Living Outcome Pediatric Complications Fetus ID Race Codes Race Delivery Type , Spontane ous [id number] Bernardino Calculation Initial Bernardino Date Initial Exam Date Initial Exam Provider Initial Ultrasound Date Last Menstrual Period Date Ultra Sound Weeks Gestation 0 Eighteen To Twenty Week Bernardino Update Ultra Sound Date Fundal Height At Umbil Quickening Date Ultra Sound Latest Weeks Gestation Final Bernardino Confirmed By Final Bernardino Confirmed Date Final Bernardino Date Ultra Sound Latest Days Gestation 0 0 Menstrual History Last Menstrual Date Menses Monthly On Bcp Conception Prior Menses Frequency Hcg Plus Date Menarche Onset Age Delivery Information Delivery Date Delivery Type Labor Anesthesia Weeks Gestation Incision Type Labor Labor Length Hrs Delivered By Post Complications Tubal Sterilization Discharge Date Comments 8 Discharge Information Feeding Method Contraceptive Method Maternal HG B and HCT Levels
== END 2025-03-26 10:59 | disposition home or self-care (01) ==
PROVIDERS: PCP Emergency Medicine; Visit Provider Orthopaedic Surgery
DX: M17.12 Unilateral primary osteoarthritis, left knee (principal); M11.262 Other chondrocalcinosis, left knee
CPT/HCPCS: 73564

== ENCOUNTER 2025-06-18 08:34 | Outpatient (CLI) | payer MEDICARE, OTHER, SELFPAY ==
--- NOTE | ~2025-06-18 | MR_ITS ---
MRI of the left knee Clinical history: Arthritis Technique: Coronal proton density and proton density-weighted images, sagittal proton-density and T2 fat-sat images, and axial proton-density fat-saturated images were acquired. Findings: Anterior and posterior cruciate ligaments are intact. Medial collateral ligament and the la teral collateral ligament conflux are intact. Popliteus tendon is intact. There is horizontal tear of the anterior horn of the medial meniscus extending to the body segment. T here is also horizontal tear of the posterior horn of the lateral meniscus, extending to the body seg ment. 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 There is mild chondromalacia the medial lateral compartment. Extensor mechanism is intact. No significant joint effusion or Kate's cyst. Impression: Horizontal tear of the anterior horn the medial meniscus extending to the body segment. Horizontal tear of the posterior horn of the lateral meniscus, extending to the body segment. Reviewed, dictated and finalized at location . Impression: Horizontal tear of the anterior horn the medial meniscus extending to the body segment. Horizontal tear of the posterior horn of the lateral meniscus, extending to the body segment.
--- OUTSIDE RECORDS SUMMARY | 2025-06-18 08:40 | XMS_ITS | Encounter Summary ---
Author Organization [facility] Address [address] [place] [address] Care Team Providers Care Dispatch Machine Runner Name Role Phone Elen Bach PA-C Unavailable [phone] Rosanna Tran MD Primary Care Provider [phone] Paul Gaines MD Primary Care Provider [phone] Shakila Loza Unavailable Encounter Details Date Type Department Care Team (Late st Contact Info) Description 08/21/2022 Telephone [facility] [address] [place] [address] Sotero Mcbride MD [facility] [place] [address] Social History Tobacco Use Types Packs/Day Years [...] on file 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 Estefani espinosajulian and [facility]. documented in this encounter Plan of Treatment Not on file documented as of this encounter Visit Diagnoses Not on filedocumented in this encounter Care Teams Dispatch Machine Runner Relationship Specialty [place] [address] [phone] PCP - General Internal Medicine 06/18/22 11/05/22 [place] [address] [place] [address] [address] [place] [address] PCP - General Internal Medicine 11/06/22 Elen Bach, PA-C [address] [place] [address] 05/22/19 Shakila Loza Care Coordination Specialist Care Management 04/13/25 04/13/25 documented as of this encounter
--- OUTSIDE RECORDS SUMMARY | 2025-06-18 08:40 | XMS_ITS | Referral Summary ---
Author Organization [facility] Address [address] [place] [address] Care Team Providers Care Body Maker Machine Setter Name Role Phone Sotero Mcbride MD Unavailable Eran Cortez MD, Paul Rendon Primary Care Provide r Encounters Date Type Department Care Team Description 06/14/2025 Orders Only [facility] [address] [place] [phone] Paul Barillas Jr., MD Droopy eyelid, bilateral (Primary Dx) 05/25/2025 2:15 PM CDT Office Visit [facility] [address] [place] [phone] Paul Barillas Jr., MD Primary hypertension (Primary Dx); Other specified hypothyroidism; Neuropathy, arm, right; Preventative health care from Last 3 Months Allergies Active Allergy Reactions Criticality Noted Date Comments Sulfa (Sulfonamide Antibiotics) Other (See comments),Rash,Shor tness of breath High 04/23/2017 Trouble breathing Other reaction(s): Difficulty breathing, Rash, NOS, Unknown Other reaction(s): Rash, NOS, Rash, NOS Other reaction(s): Rash, NOS, Rash, NOS Trimethoprim Rash Medium 08/02/2011 Medications levothyroxine (SYNTHROID) 50 mcg tablet 1 Active amLODIPine (NORVASC) 10 mg tablet Take 1 tablet (10 mg total) by mouth daily Active gabapentin (NEURONTIN) 300 mg capsule Take 1 capsule (300 mg total) by mouth 3 (three) times a day 2 Active cholecalciferol (VITAMIN D-3) 1,000 unit Take 1 tablet/caps ule (1,000 Units total) by mouth daily Active metoprolol XL (TOPROL-XL) 50 mg extended release tabletIndications :Primary hypertension Take 1 tablet (50 mg total) by mouth daily 90 tablet 4 5 05/25/20 26 Active gabapentin (NEURONTIN) 600 mg tablet TAKE 1 TABLET THREE TIMES A DAY 270 tablet 3 5 Active hydroCHLOROthiazi de (HYDRODIURIL) 25 mg tablet Take 1 tablet (25 mg total) by mouth daily 0 05/25/20 25 Discontinu ed(Therapy completed) metoprolol tartrate (LOPRESSOR) 50 mg immediate release tablet Take 1 tablet (50 mg total) by mouth 2 (two) times a day 0 05/25/20 Discontinu ed(Therapy completed) linaCLOtide (LINZESS) 145 mcg capsule 1 capsule (145 mcg total) PRN 05/25/20 Discontinu ed(Therapy completed) hyoscyamine sulfate 0.125 mg-0.25 mg (0.375 mg) tablet,ext release multiphase Take by mouth 05/25/20 Discontinu ed(Therapy completed) escitalopram (LEXAPRO) 5 mg tablet 2 05/25/20 25 Discontinu ed(Therapy completed) potassium chloride ER 10 mEq CR capsule 2 05/25/20 Discontinu ed(Therapy completed) Lactobac no.41/Bifidobact no.7 (PROBIOTIC-10 ORAL) Take by mouth 05/25/20 Discontinu ed(Therapy completed) Active Problems Problem Noted Date Diagnosed Date Other specified hypothyroidism 05/25/2025 Neuropathy, arm, right 05/25/2025 Assessment & Plan (05/25/2025 2:55 PM CDT): From surgery Continue gabapentin S/P shoulder replacement, right 05/25/2025 Arthritis of left knee 05/25/2025 Preventative health care 05/25/2025 Immunizations Immunization Administration Dates Next Due Influenza, Quadrivalent, Bailee l Culture-based MDCK, Preservative Free, Antibiotic Free, Intramuscular 09/11/2019 Influenza, Quadrivalent, Hig h Dose, Preservative Free, Intrr 09/07/2023,08/29/2021,04/25/2021 Influenza, Quadrivalent, Spl it, Preservative Free, Intramuscular 09/05/2018 Influenza, Trivalent, Cell Culture-based MDCK, Preservative Free, Antibiotic Free, Intramuscular 09/11/2019 Influenza, Trivalent, High D ose, Split, Preservative Free, Intramuscular 08/21/2024,08/29/2021 Influenza, Trivalent, IM (MDV) ,09/02/2017,08/25/2015,08/07 Influenza, Trivalent, Preser vative Free, Intramuscular 08/10/2016 Influenza, Unspecified 08/30/2022 Pneumococcal Conjugate PCV 13 07/08/2020 Pneumococcal Polysaccharide PPV23 11/13/2021, Tdap 05/22/2017,08/10/2016 ZOSTER Recombinant 07/24/2019,05/22/2019 Social History Tobacco Use Types Packs/Day Years Used Date Smoking Tobacco: Never Smokeless Tobacco: Never Tobacco Cessation:Counseling Given: Not Answered AUDIT-C Answer Date Recorded Q1: How often do you have a drink containing alc ohol? Monthly or less 05/25/2025 Q2: How many drinks containi ng alcohol do you have on a typical day when you are drinking? 1 or 2 05/25/2025 Q3: How often do you have si x or more drinks on one occasion? Never 05/25/2025 PHQ-2 Answer Date Recorded PHQ-2 Total Score (If total score is 3 or more points, staff should administer the PHQ-9) 0 05/25/2025 Comments Unknown Sex and Gender Information Value Date Recorded Sex Assigned at Not on file Legal Sex Female 12:04 AM FINAL CANOE INSPECTOR Gender Identity Female 10/13/2022 4:59 AM FINAL CANOE INSPECTOR Sexual Orientation Straight 10/13/2022 4: 59 AM FINAL CANOE INSPECTOR Last Filed Vital Signs Vital Sign Reading Time Taken Comments Blood Pressure 118/70 05/25/2025 1:56 PM CDT Pulse 82 05/25/2025 1:56 PM CDT Temperature 36.7 C (98 F) 05/25/2025 1:56 PM CDT Respiratory Rate 18 05/25/2025 1:56 PM CDT Oxygen Saturation 94% 05/25/2025 1:56 PM CDT Inhaled Oxygen Concentration - - Weight 71.7 kg (158 lb) 05/25/2025 1:56 PM CDT Height 162.6 cm (5' 4) 05/25/2025 1:56 PM CDT Body Mass Index 27.12 05/25/2025 1:56 PM CDT Plan of Treatment Not on file Procedures Procedure Name Priority Date/Time Associated Diagnosis Comments DEXA SCAN Routine 02/19/2024 11:56 AM CDT MAMMOGRAPHY Routine 01/01/2024 11:54 AM FINAL CANOE INSPECTOR COLONOSCOPY Routine 11/04/2017 11:50 AM FINAL CANOE INSPECTOR from Last 3 Months or Most Recently Relevant to Health Maintenance Results * DEXA SCAN (02/19/2024 11:56 AM CDT) [facility] Provider MD HEALTH MAINTENANCE Final Result * MAMMOGRAPHY (01/01/2024 11:54 AM FINAL CANOE INSPECTOR) Mammography Normal [facility] Provider MD HEALTH MAINTENANCE Final Result * COLONOSCOPY (11/04/2017 11:50 AM FINAL CANOE INSPECTOR) Scribed HM Colonoscopy Normal [facility] Provider HEALTH MAINTENANCE Final Result from Last 3 Months or Most Recently Relevant to Health Maintenance Insurance MEDICARE FOR LIFE MEDICARE FOR LIFE Care Teams Body Maker Machine Setter Relationship Specialty Start Date End Date Paul Barillas Jr., MD [address] [place] [id number] PCP - General Internal Medicine 05/25/25 Sotero Mcbride MD Referring Physician Orthopedic Surgery 10/15/22
--- OUTSIDE RECORDS SUMMARY | 2025-06-18 08:40 | XMS_ITS | Clinical Summary ---
Author Organization [employer] Address [address] [place] [address] Care Team Providers Care Oriental Rug Stretcher Name Role Phone Paul Gaines MD Primary [...] COVID-19 VACCINE - EMERGENCY USE AUTHORIZATION, MRNA, [id number](PF) 30 MCG/0.3 ML IM SUSP 07/25/2021,02/25/2021,02/04/2021 (PNEUMOVAX [...] oz pur e alcohol) 1 glass weekly Comments Unknown Sex and Gender Information Value [...] 9:26 AM CDT Height 161.9 cm (5' 3.75) 08/22/2022 9:26 AM CD T Body Mass Index 27.16 08/22/2022 9:26 AM CDT Plan of Treatment Health Maintenance Due Date Last Done Comments FIT-DNA Q 3 years 1999 FIT/FOBT Q 1 year 1999 Flex Sig/CT Colonography Q 5 years 1999 BREAST CANCER SCREENING 05/18/2023 05/18/20, 05/18/2022, 12/08/2021, Additional history exists COVID-19 Vaccine (2023-2 5 season) 2024 03/12/2022, 07/25/2021, 02/25/2021, Additional history exists INFLUENZA VACCINE (#1) 2025 , 08/29/2021, 08/29/2021, Additional history exists OSTEOPOROSIS SCREENING 08/10/2025 08/10/2020 [...] Most Recently Relevant to Health Maintenance Insurance [facility] Member Subscriber Plan / Payer (Ef fective 2021-Present) Name:NinfaMargaret Relation to Subscriber:Spouse Name:AUSTIN OCASIO Date of :1956 (Home) Address: [address] [place] [address] Payer ID:Not on file Group ID:Not on file Type:[facility] Address: [place] [id number] MEDICARE PART A AND B Care Teams Oriental Rug Stretcher Relationship Specialty Start Date End Date Paul Gaines MD [address] [place] [id number] PCP - General Internal Medicine 09/19/23
--- OUTSIDE RECORDS SUMMARY | 2025-06-18 08:40 | XMS_ITS | Clinical Summary ---
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
--- OUTSIDE RECORDS SUMMARY | 2025-06-18 08:40 | XMS_ITS | Continuity of Care Document ---
Author Name [facility] Organization [facility] Care Team Providers Care Dairy Farmer Name Role Phone [facility] Unavailable Unavailable Problems Combined list of problems [...] BESYLATE (AMLODIPINE BESYLATE), 10 MG, TABLET, ORAL, Victoria Plumb, 1000 ea. BOTTLE Active [id number] 2023 90 Pharmac y Data Transac tion Service Facilit y ESCITALOPRA M OXALATE (ESCITALOPR AM OXALATE), 5 MG, TABLET, ORAL, EXELAN PHARMACE, 1000 ea. BOTTLE Active [id number] 2023 90 Pharmac y Data Transac tion Service Facilit y GABAPENTIN (gabapentin ), 600 MG, TABLET, ORAL, AUNG PHARMACEU, 500 ea. BOTTLE Cancele d [id number] : 2023 0 Pharmac y Data Transac tion Service Facilit y GABAPENTIN (gabapentin ), 600 MG, TABLET, ORAL, AUNG PHARMACEU, 500 ea. BOTTLE Cancele d [id number] : 2023 0 Pharmac y Data Transac tion Service Facilit y GABAPENTIN (gabapentin ), 600 MG, TABLET, ORAL, AUNG PHARMACEU, 500 ea. BOTTLE Active [id number] 2023 270 Pharmac y Data Transac tion Service Facilit y METOPROLOL TARTRATE (metoprolol tartrate), 50 MG, TABLET, ORAL, [employer] 1000 ea. BOTTLE Active [id number] 4 2023 180 Pharmac y Data Transac tion Service Facilit y Allergies, Adverse Reactions, Alerts Combined list of allergies from Department of Defense and Veterans Affairs facilities. It does not include entries that were removed or entered in error. Substance Category Reaction Severity Reaction type Status Date Reported Comments Source No Known Allergies Drug allergy (disorder) active 12/13/[address] [place] [address] [facility]) Immunizations Combined list of available immunizations from the Department of Defense and Veterans Affairs facilities. Immunization Series Date Given Administered By Site Reaction Lot Number CVX Code Drug Registered Medical Transcriptionist Status Comments Source COVID-19, mRNA, LNP-S, PF, 30 mcg/0.3 mL dose, kristen-sucrose 2021 [employer] [place] (PFR) Not Given COVID-19, mRNA, LNP-S, PF, 30 mcg/0.3 mL dose, kristen-sucr ose DoD influenza, high-dose, quadrivalent 2020 DEVON, () Not Given influenza , high-dose , quadrival ent DoD COVID-19, mRNA, LNP-S, PF, 30 mcg/0.3 mL dose 2020 [employer] [place] (PFR) Not Given COVID-19, mRNA, LNP-S, [...] ADM Date DC Date Status Disposition Source [address] [place] [address] [facility])(Sco tt [facility] Fam Res Tm Green) OUTPATIENT [id number] Initial appt with PCM team - [id number] DAVID BAEZ 05/11 Released w/o Limitations [address] [place] [address] [facility])(S cott [facility] Fam Res Tm Green) [address] [place] [address] [facility])(Sco tt [facility] Fam Res Tm Green) TELE CONSULT [id number] Notes Entered by: Noni MEJÍA 25 Jun 2016 0801 ------- ------- ------- ------- -- SX - Conditi on flare-u p Private area - Med Request /Maya / - mark CENTENO DEMI M 06/[address] [place] [address])(S [facility] Fam Res Tm Green) [address] [place] [address])([place]co [place] [facility] [place]) TELE CONSULT [id number] Notes Entered by: PATTIE DAVIS ELS 09 Oct 2016 1311 ------- ------- ------- ------- -- Network [facility] //Levon sheth//44 4.9624/ /AYANNA Rice 10/[address] [place] [address])(S [facility] Fam Res Tm Red) [address] [place] [address])(Sco tt [facility] [place] Res [place]) TELE CONSULT [id number] Notes Entered by: Emily CASTRO 12 Nov 2016 1605 ------- ------- ------- ------- -- Request s med refill. AYANNA LANCASTER 11/[address] [place] [address])(S [facility] Fam Res Tm Red) [address] [place] [address])(Sco tt [facility] Fam Res Tm Red) OUTPATIENT [id number] f/u meds - [id number] AYANAN LANCASTER 12/18 Released w/o Limitations [address] [place] [address])([facility] Fam Res Tm Red) [address] [place] [address])(Sco tt [facility] Fam Res Tm Red) OUTPATIENT [id number] Rt Ear seems to be clogged ; need help with chau sheridan it up AYANNA LANCASTER 03/05 Released w/o Limitations [address] [place] [address])(S [facility] Fam Res Tm Red) [address] [place] [address])(Sco tt [facility] Fam Res Tm Green) TELE CONSULT [id number] Notes Entered by: EDNA PATIÑO 14 Mar 2017 0704 ------- ------- ------- ------- -- AYANNA Rai 03/[address] [place] [address] [facility]ero [facility])([facility] Fam Res Tm Green) [address] [place] [address])([facility]) OUTPATIENT [id number] Notes Entered by: BURT JOHNSON 14 Mar 2017 0913 ------- ------- ------- ------- -- GLB #2 BURT JOHNSON 03/14 Released w/o Limitations [address] [place] [address])(N utriti nal Medicin e) [address] [place] [address])(Sco tt [facility] Res Tm Red) OUTPATIENT [id number] Dr Matt bella my visit to discuss additio n meds and/or refills ELENI RODRIGUES 03/22 Released w/o Limitations [address] [place] [address] [facility])([facility] Res Tm Red) [address] [place] [address])([facility]) OUTPATIENT [id number] Notes Entered by: BURT JOHNSON 01 May 2017 1445 ------- ------- ------- ------- -- GLB #8 BURT JOHNSON 05/01 Released w/o Limitations [address] [place] [address])(N utriti nal Medicin e) [address] [place] [address] [facility])(Sco tt [facility] Fam Res Tm Green) TELE CONSULT [id number] Notes Entered by: JULIA JAUREGUI 18 Sep 2017 0743 ------- ------- ------- ------- -- SX - SX of UTI / Yoha / - sgj SONIYA HEART 09/18 Referred for Appointment [address] [place], [place] [address]B [facility])([facility] Res Tm Green) [address] [place] [address] [facility])(Sco tt [facility] Res Green) OUTPATIENT [id number] Scolios is Issue REZA VILLALOBOS 12/06 Released w/o Limitations [address] [place] [address] [facility])(S cott [facility] Res Tm Green) [address] [place] [address] [facility])(Sco tt [facility] Green) TELE CONSULT [id number] Notes Entered by: HOLLIS VILLALOBOS 13 Dec 2017 1828 ------- ------- ------- ------- -- Xray results REZA VILLALOBOS 12/14 Referred for Appointment [address] [place] [address] [facility])([facility] Green) [address] [place] [address] [facility])(Sco tt [facility] Green) TELE CONSULT [id number] Notes Entered by: Noni CAVAZOS 16 Jan 2018 1601 ------- ------- ------- ------- -- Network results [facility] 018 ALD REZA VILLALOBOS 01/16 Referred for Appointment [address] [place] [address] [facility] Green) [address] [place] [address] [facility])(Sco tt [facility] Green) TELE CONSULT [id number] Notes Entered by: FADI WOODWARD 29 Jan 2018 0800 ------- ------- ------- ------- -- SX: Chest pain/ER Refusal /ER Req/Yoh a/444.9 624/clm LUZ CASTRO 01/[address] [place] [address] [facility] Green) [address] [place] [address] [facility])(Sco tt [facility] Green) OUTPATIENT [id number] intermi ttent chest pain x2 wks [id number] 4 MEGA ROJO 01/29 Released w/o Limitations [address] [place] [address] [facility])(S cott [facility] Fam Res Tm Green) [facility] [address] [facility])(Sco tt [facility] Fam Res Tm Green) TELE CONSULT [id number] Notes Entered by: MARTINE JACOME 14 Feb 2018 1246 ------- ------- ------- ------- -- Echocar diogram results - F/U Appt - Cardiol ogy F/U/ Natalia/ [phone] 4 - [facility] LUZ CASTRO 02/14 [facility] [facility]S cott [facility] Fam Res Tm Green) [address] [place] [address] [facility])(Sco tt [facility] Fam Res Tm Green) TELE CONSULT [id number] Notes Entered by: MARY MONROE 17 Mar 2018 0817 ------- ------- ------- ------- -- LUZ Oliveira 03/[address] [place] [address] [facility]S cott [facility] Fam Res Tm Green) [address] [place] [address] [facility])(Sco tt [facility] FAMRES Tm Blue) TELE CONSULT [id number] Notes Entered by: Zahida SHETTY 24 Mar 2018 0823 ------- ------- ------- ------- -- Office message REZA VILLALOBOS 03/24 Referred for Appointment [facility] [facility]S cott [facility] FAMRES Tm Blue) [address] [place] [address] [facility])(Sco tt [facility] FAMRES Tm Blue) TELE CONSULT [id number] Notes Entered by: LORETO DURAN 27 Mar 2018 1516 ------- ------- ------- ------- -- Record Request LUZ CASTRO 03/[address] [place] [address] [facility]S cott [facility] FAMRES Tm Blue) [address] [place] [address] [facility])(Sco tt [facility] Fam Res Tm Green) TELE CONSULT [id number] Notes Entered by: MARY MONROE 15 May 2018 1427 ------- ------- ------- ------- -- Med LUZ Heck 05/15 [facility] [facility] [facility])(S cott [facility] [employer] Res Tm Green) [address] [place] [address] [facility])([facility] Blue) TELE CONSULT [id number] Notes Entered by: Zahida SHETTY 20 May 2018 1109 ------- ------- ------- ------- -- Office message LUZ CASTRO 05/[address] [place] [address] Group [employer] [facility])([facility]) [address] [place] [address] [facility])(Sco tt [facility] [employer] Green) TELE CONSULT [id number] Notes Entered by: Zahida SHETTY 09 Jun 2018 0923 ------- ------- ------- ------- -- Office message REZA VILLALOBOS 06/09 Referred for Appointment [address] [place] [address] [facility])([facility] [employer] Res Tm Green) [address] [place] [address] [facility])(Sco tt [facility] Res [employer] Green) TELE CONSULT [id number] Notes Entered by: MARY MONROE 23 Jun 2018 0803 ------- ------- ------- ------- -- Medicat ion renewal REZA VILLALOBOS 06/23 Referred for Appointment [address] [place] [address] [facility] Res Tm Green) [address] [place] [address] [facility])(Sco tt [facility] Res [employer] Green) OUTPATIENT [id number] annual check up for prescri ptions( RX) -is blood work require d for this apt? REZA VILLALOBOS 08/11 Released w/o Limitations [address] [place] [address] [facility])(S cott [facility] Res Tm Green) [address] [place] [address] [facility])(Sco tt [facility] Res Tm Green) TELE CONSULT [id number] Notes Entered by: MELANY ALBARADO ON D 29 Sep 2018 0827 ------- ------- ------- ------- -- Rx Renewal /Yolilly/Luis Carlos [phone] LUZ CASTRO 09/29 Referred for Appointment [address] [place] [address] [facility])(S [facility] Res Tm Green) [address] [place] [address] [facility])(Sco tt [facility] Res Tm Green) TELE CONSULT [id number] Notes Entered by: Zahida SHETTY 07 Nov 2018 0847 ------- ------- ------- ------- -- Rx refill LUZ CASTRO 11/07 Referred for Appointment [address] [place] [address] [facility] Res Tm Green) [address] [place] [address] [facility])([facility]) TELE CONSULT [id number] Notes Entered by: Zahida SHETTY 31 Dec 2018 1405 ------- ------- ------- ------- -- Rx refill REZA VILLALOBOS 12/31 Released w/o Limitations [address] [place] [address] [facility]) Procedures Combined list of: 1) Procedures from Department of Veterans Affairs facilities going back up to thelast 18 months, not all VA non-surgical procedures are included; 2) All procedures from the Department of Defense facilities. Procedure Procedure Type Code Date Perfomer Comments Sourc e Internet Med Svc Qual Nonphys Healthcare Prof Estab Patient Internet Med Svc Qual Nonphys Healthcare Prof Estab Patient [id number] 06/11/2018 REZA VILLALOBOS [facility] Non-Physician Phone Call To Patient/Provider Brief (5-10min) Non-Physician Phone Call To Patient/Provider Brief (5-10min) [id number] 05/19/2018 ASHTYN VALVERDE [facility] Non-Physician Phone Call To Patient/Provider Brief (5-10min) Non-Physician Phone Call To Patient/Provider Brief (5-10min) [id number] 04/24/2018 LUZ CASTRO [facility] Non-Physician Phone Call To Patient/Provider Brief (5-10min) Non-Physician Phone Call To Patient/Provider Brief (5-10min) [id number] 02/14/2018 LUZ CASTRO [facility] Non-Physician Phone Call To Patient/Provider Brief (5-10min) Non-Physician Phone Call To Patient/Provider Brief (5-10min) [id number] 01/29/2018 LUZ CASTRO Cerumen Removal Left Ear Curette Cerumen Removal Left Ear Curette [id number] 12/09/2017 REZA VILLALOBOS [facility] Cerumen Removal Right Ear Curette Cerumen Removal Right Ear Curette [id number] 12/09/2017 REZA VILLALOBOS [facility] Non-Physician Phone Call To Patient/Provider Brief (5-10min) Non-Physician Phone Call To Patient/Provider Brief (5-10min) [id number] 09/18/2017 SONIYA HEART [facility] Medical Nutrition Therapy Group (2 or More Individual(s)) Medical Nutrition Therapy Group (2 or More Individual(s)) [id number] 05/02/2017 BURT JOHNSON S [facility] Medical Nutrition Therapy Group (2 or More Individual(s)) Medical Nutrition Therapy Group (2 or More Individual(s)) [id number] 03/14/2017 ELIZABETHBURT CANTU S [facility] Non-Physician Phone Call To Patient/Provider Brief (5-10min) Non-Physician Phone Call To Patient/Provider Brief (5-10min) [id number] 11/12/2016 LUZ CASTRO [facility] ONLINE ASSESS &MANAG SERV PROVIDE,A QUAL NONPHYS HCP TO AN ESTABLISHED PAT/GUARDIAN,NOT ORIGINAT FRM RELAT ASSESS &MANAG SERV PROVIDE W/IN THE PREV 7 DAYS,USE THE INTERNET/SIMILAR [employer] 06/09/2018 [facility] TELE ASSESS & MGT SRV PROV QUAL NONPHYS HLTH CARE PRO TO EST PAT,PARENT,GUARD NOT ORIG REL ASSESS & MGT SRV PROV W/IN PREV 7 DAYS NOR LEAD ASSESS & MGT SRV/PX W/IN NXT 24 HR/SOON APT;5-10 MIN MED DIS 05/15/2018 [facility] TELE ASSESS & MGT SRV PROV QUAL [...] 24 HR/SOON APT;5-10 MIN MED DIS 11/12/2016 [facility] Social History Combined list of available smoking, tobacco, and other social history from Department of Defense and Veterans Affairs facilities. Social History Type Response Date Comment Sour e This section is an empty social history section. [facility]
--- OUTSIDE RECORDS SUMMARY | 2025-06-18 08:40 | XMS_ITS | Clinical Summary ---
Author Organization [facility] Address [address] [place] [address] Care Team Providers Care Medical Pathologist Name Role Phone Elen Bach PA-C Unavailable [phone] Paul Gaines MD Primary Care Provider + [phone] [facility],non-owned Affiliates and Associated Physician Practices is amultiple site organization consisting of ambulatory clinics and hospital sitesin [place], [place], [place] and [place]. This disclosure is being madepursuant to the Care Everywhere program and may not contain all information available regarding this patient. Last updated 18.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 - Care Coordination [address] [place] [id number] Shakila Loza from Last 3 Months Immunizations Immunization Administration Dates Next Due INFLUENZA VACCINE, TRIV. (AF LURIA, FLUZONE TRIVALENT; 6MO+) (IIV3) 09/01/2020 COVID PFIZER 12+YR 30MCG/0.3mL 08/21/2024,2022 Covid Pfizer primary Monoval ent 12+ yr 0.3ml 03/12/2022 FLU VACCINE TRI IIV3 SPLIT I M (FLUVIRIN) 09/02/2017,08/25/2015,08/07/2014 INFLUENZA VACCINE 08/30/2022 INFLUENZA VACCINE, CELL CULT URE, QUADR. (FLUCELVAX QUADRIVALENT; 6MO+) (CCIIV4) 09/11/2019,09/11/2019 INFLUENZA VACCINE, HIGH-DOSE , QUADR. (FLUZONE HIGH-DOSE QUADRIVALENT; 65Y+), 0.7 ML (HD-IIV4) 09/07/2023,08/30/2022,08/29/2021,2020 INFLUENZA VACCINE, HIGH-DOSE , TRIV. (FLUZONE HIGH-DOSE TRIVALENT; 65Y+) (HD-IIV3) 08/21/2024 INFLUENZA VACCINE, QUADR. (F LUZONE; FLULAVAL; FLUARIX; AFLURIA QUADRIVALENT; 6MO+), 0.5 ML (IIV4) 09/05/2018 INFLUENZA VACCINE, TRIV. 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 Gender Identity Not on file Sexual Orientation [...] 11:52 AM CDT Height 162.6 cm (5' 4) 09/09/2023 11:52 AM CDT Body Mass Index 26.43 09/09/2023 11:52 AM CDT Plan of Treatment Health Maintenance Due Date Last Done Comments BONE DENSITY TESTING 1955 COLOGUARD (AGES 45-75) - COLON CA SCREENING 1954 CT COLONOGRAPHY - COLON CA SCREENING 1955 FLEX SIG - COLON CA SCREENING 1955 LIPID TESTING 1955 MEDICARE AWV 12 MONTHS 1955 HEPATITIS C SCREENING 05/31/1972 FIT - COLON CA SCREENING 09/09/2015 09/09/2014 SCREENING FOR DIABETES 09/09/2023 MAMMOGRAM 05/18/2024 05/18/2022 DEPRESSION SCREENING 12/02/2024 COVID-19 VACCINE ( season) 2025 08/21/2024, 09/27/2023, 03/12/2022, Additional history exists INFLUENZA VACCINE (#1) 2025 , 09/07/2023, 08/30/2022, Additional history exists DTAP/TDAP/TD VACCINES (3 - Td or Tdap) 05/22/2027 05/22/2017, 08/10/2016 COLON MONITORING 11/04/2027 11/04/2017 COLONOSCOPY - COLON CA SCREENING 11/04/2027 11/04/2017 Colorectal Cancer Screening 11/04/2027 Respiratory Syncytial Virus (RSV) Vaccine Pt: or [...] this topic Medical Devices Implanted Type Area Cosmetician Apprentice Device Identifier Shelf Expiration Date Model / Serial / Lot Screw Bsplt 35mm Arthx Ranjit Knutson Implanted:Qty: 1 on 07/24/2022 by Sotero Mcbride MD at [facility] Right: Shoulder [employer] 10/31/2026 AR-9561-35 S / / [id number] Bsplt Glnd 24mm Arthx +4mm Ranjit Knutson Implanted:Qty: 1 on 07/24/2022 by Sotero Mcbride MD at [facility] Right: Shoulder [employer] 05/01/2024 AR-9560-24 -4 / / [id number] Sphr Glnd 36mm 24mm +4mm Shldr Ltrlz Implanted:Qty: 1 on 07/24/2022 by Sotero Mcbride MD at [facility] Right: Shoulder [employer] 10/01/2026 AR-9564-24 36-LAT / / [id number] [facility] Modular Glenoid System, Peripheral Screw, Locking 5.5 X 36mm Implanted:Qty: 1 on 07/24/2022 by Sotero Mcbride MD at [facility] Right: Shoulder [employer] 08/31/2025 AR-9563-36 / / [id number] Screw 5.5mm 20mm Lck Gala Strl Bone Implanted:Qty: 1 on 07/24/2022 by Sotero Mcbride MD at [facility] Right: Shoulder [employer] 12/01/2026 AR-9563-20 / / [id number] Screw 5.5mm 32mm Lck Mdlr Glnd Gala Implanted:Qty: 1 on 07/24/2022 by Sotero Mcbride MD at [facility] Right: Shoulder [employer] 08/01/2026 AR-9563-32 / / [id number] Screw 5.5mm 16mm Lck Gala Strl Bone Implanted:Qty: 1 on 07/24/2022 by Sotero Mcbride MD at [facility] Right: Shoulder [employer] 12/01/2026 AR-9563-16 / / [id number] Stem Hum 95mm Set Spl Mnblck Prox Lazaro Implanted:Qty: 1 on 07/24/2022 by Sotero Mcbride MD at [facility] Right: Shoulder [employer] 08/01/2025 AR-9501-05 -135CPC / / [id number] Ins Hum 36mm Univers Revers +3mm Sm Implanted:Qty: 1 on 07/24/2022 by Sotero Mcbride MD at [facility] Right: Shoulder [employer] 08/31/2026 AR-9503S-0 [id number] Insurance MEDICARE MEDICARE MEDICARE MEDICARE Advance Directives * Full Code (Latest Code Status on File) Date Activated Date Inactivated Comments 07/24/2022 6:39 PM 07/25/2022 12:12 PM Care Teams Medical Pathologist Relationship Specialty Start Date End Date Paul Gaines MD [address] [place] [id number] PCP - General Internal Medicine 11/06/22 Elen Bach, PA-C [address] [place] [address] 05/22/19
--- OUTSIDE RECORDS SUMMARY | 2025-06-18 08:40 | XMS_ITS | Clinical Summary ---
Author Organization [facility] Address [address] [place] [address] Care Team Providers Care Graphic Production Artist Name Role Phone Sotero Mcbride MD Unavailable Eran Cortez MD, Paul Rendon Primary Care Provide r Allergies Active Allergy Reactions Criticality Noted Date [...] mg total) by mouth daily 0 05/25/20 Discontinu ed(Therapy completed) metoprolol tartrate (LOPRESSOR) 50 [...] escitalopram (LEXAPRO) 5 mg tablet 2 05/25/20 Discontinu ed(Therapy completed) potassium chloride ER 10 [...] left knee 05/25/2025 Preventative health care 05/25/2025 Encounters Date Type Department Care Team Description 06/14/2025 Orders Only [facility] [address] [place] [phone] Paul Barillas Jr., MD Droopy eyelid, bilateral (Primary Dx) 05/25/2025 2:15 PM CDT Office Visit [facility] [address] [place] [phone] Paul Barillas Jr., MD Primary hypertension (Primary Dx); Other specified hypothyroidism; Neuropathy, arm, right; Preventative health care from Last 3 Months Immunizations Immunization Administration Dates Next Due Influenza, Quadrivalent, Bailee l Culture-based MDCK, Preservative Free, Antibiotic Free, Intramuscular 09/11/2019 Influenza, Quadrivalent, Hig h Dose, Preservative Free, Intrr 09/07/2023,08/29/2021,04/25/2021 Influenza, Quadrivalent, Spl it, Preservative Free, Intramuscular 09/05/2018 Influenza, Trivalent, Cell Culture-based MDCK, Preservative Free, Antibiotic Free, Intramuscular 09/11/2019 Influenza, Trivalent, High D ose, Split, Preservative Free, Intramuscular 08/21/2024,08/29/2021 Influenza, Trivalent, IM (MDV) 0,09/02/2017,08/25/2015,08/07 Influenza, Trivalent, Preser vative Free, Intramuscular 08/10/2016 Influenza, Unspecified 08/30/2022 Pneumococcal Conjugate PCV 13 07/08/2020 Pneumococcal Polysaccharide PPV23 11/13/2021, Tdap 05/22/2017,08/10/2016 ZOSTER Recombinant 07/24/2019,05/22/2019 Surgical History Surgery Date Site/Laterality Comments HYSTERECTOMY Total Hysterectomy - (Added by TW Conv) [place] OOPHORECTOMY PARTIAL/TOTA L UNI/BI Oophorectomy - Unilateral (Removal Of One Ovary) - (Added by TW Conv) EXTRACORPOREAL SHOCK WAVE LITHOTRIPSY Lithotripsy - (Added by TW Conv) BLADDER SURGERY Bladder Surgery - (Added by TW Conv) ROTATOR CUFF REPAIR REVERSE TOTAL SHOULDER ARTHROPLASTY CHOLECYSTECTOMY 2019 BREAST SURGERY 2020 JOINT REPLACEMENT 2021 TUBAL LIGATION 1982 CATARACT EXTRACTION 2018 Medical History Medical History Date Comments Personal history of other di seases of the circulatory system History of hypertension - (A dded by TW Conv) Personal history of other sp ecified conditions History of ulceration - (Add ed by TW Conv) Personal history of other di seases of the circulatory system History of mitral valve prol apse - (Added by TW Conv) GERD (gastroesophageal reflux disease) Cataract Hypertension Asthma due to seasonal allergies History of kidney problems Thyroid disease Heart disease mitral valve pro lapse - leakage from heart valves IBS (irritable bowel syndrome) H/O impacted cerumen Menstrual problem 1965 Kidney stone 1989 Family History Medical History Relation Name Comments Heart attack Brother 1 Family history of myocardial infarction - (Added by TW Conv) Anemia Father Family history of anemia - (Added by TW Conv) Heart attack Father Hypertension Father Ovarian cancer Maternal Grandmother Famil y history of malignant neoplasm of ovary - (Added by TW Conv) Arthritis Mother Early Cardiac Disease Mother Hypertension Mother Kidney disease Mother Family histor y of chronic kidney disease - (Added by TW Conv) Obesity Mother Ovarian cancer Mother Family histor y of [...] on file Legal Sex Female 12:04 AM PHONOGRAPH NEEDLE TIP MAKER Gender Identity Female 10/13/2022 4:59 AM PHONOGRAPH NEEDLE TIP MAKER Sexual Orientation Straight 10/13/2022 4: 59 AM PHONOGRAPH NEEDLE TIP MAKER Obstetrics History Last Filed Vital Signs Vital [...] 05/25/2025 1:56 PM CDT Plan of Treatment Health Maintenance Due Date Last Done Comments Hepatitis C Screening 1954 Hepatitis B Screening 1972 Well Visit 65+ 2019 Covid-19 Vaccine ( - 2023-2 5 season) 2024 07/25/2021, 02/25/2021, 02/04/2021 Breast Cancer Screening-Mammogram 01/01/2025 024 Influenza Vaccine (#1) 2025 , 09/07/2023, 08/30/2022, Additional history exists Osteoporosis Screening-Bone Density Scan 02/18/2026 02/19/2024 Depression Screening 05/25/2026 05/25/2025 Fall Risk Assessment 05/25/2026 05/25/2025 DTaP/Tdap/Td Vaccine (3 - Td or Tdap) 05/22/2027 05/22/2017, 08/10/2016 Colon Cancer Screening-Colonoscopy 11/04/2027 11/04/2017 Colon Cancer Screening-CT Colonography Discontinued 11/04/2017 Colon Cancer Screening-DNA Stool Discontinued 11/04/20 17 Colon Cancer Screening-FIT Discontinued 11/04/2017 Colon Cancer Screening-Sigmoidoscopy Discontinued 11/04/2017 Zoster Vaccine Completed 07/24/2019, 05/22/2019 Pneumococcal vaccine 65+ Completed 021, 04/25/2021, 07/08/2020 Procedures Procedure Name Priority Date/Time Associated Diagnosis Comments DEXA SCAN Routine 02/19/2024 11:56 AM CDT MAMMOGRAPHY Routine 01/01/2024 11:54 AM PHONOGRAPH NEEDLE TIP MAKER COLONOSCOPY Routine 11/04/2017 11:50 AM PHONOGRAPH NEEDLE TIP MAKER from Last 3 Months or Most Recently Relevant to Health Maintenance Results * DEXA SCAN (02/19/2024 11:56 AM CDT) us Historical Provider HEALTH MAINTENANCE Final Result * MAMMOGRAPHY (01/01/2024 11:54 AM PHONOGRAPH NEEDLE TIP MAKER) Mammography Normal us Historical Provider HEALTH MAINTENANCE Final Result * HM COLONOSCOPY (11/04/2017 11:50 AM PHONOGRAPH NEEDLE TIP MAKER) Scribed HM Colonoscopy Normal us Historical Provider HEALTH MAINTENANCE Final Result from Last 3 Months or Most Recently Relevant to Health Maintenance Insurance MEDICARE GBS MEDICARE FOR LIFE Care Teams Graphic Production Artist Relationship Specialty Start Date End Date Paul Barillas Jr., MD [address] [place] [id number] PCP - General Internal Medicine 05/25/25 Sotero Mcbride MD Referring Physician Orthopedic Surgery 10/15/22
== END 2025-06-18 08:35 | disposition home or self-care (01) ==
PROVIDERS: PCP Hospitalist; Visit Provider Orthopaedic Surgery
DX: S83.242A Other tear of medial meniscus, current injury, left knee, initial encounter (principal); X58.XXXA Exposure to other specified factors, initial encounter; M17.12 Unilateral primary osteoarthritis, left knee
CPT/HCPCS: 73721

== ENCOUNTER 2025-07-30 07:50 | Outpatient (CLI) | payer MEDICARE, OTHER, SELFPAY ==
--- NOTE | 2025-07-30 08:05 | ECG_ITS ---
Test Date: 2025-07-30 08:15:38 Measurements Intervals [place] Rate: 74 P: 40 TX: 192 QRS: 9 QRSD: 85 T: 29 QT: 363 QTc: 404 Interpretive Statements SINUS RHYTHM NORMAL ECG No previous ECG available for comparison Electronically Signed On 07-30-2025 08:35:20 CDT by Michelet Soliman D.O.
== END 2025-07-30 07:51 | disposition home or self-care (01) ==
LOC: ANHSURGERY 07:54
PROVIDERS: PCP Hospitalist; Visit Provider Orthopaedic Surgery
DX: Z01.810 Encounter for preprocedural cardiovascular examination (principal); E78.00 Pure hypercholesterolemia, unspecified; I10 Essential (primary) hypertension
CPT/HCPCS: 93005

== ENCOUNTER 2025-08-10 00:22 | Day surgery (SDC) | payer MEDICARE, OTHER, SELFPAY ==
[2025-07-27 08:26] VITALS: BMI 26.9
--- NOTE | 2025-07-27 08:37 | PC.NURSE ---
Report to the Outpatient Waiting Room, entrance under the green pavilion located off [facility], at time __1130am on date _08/10/25 . Planned Procedure Time: _1:30pm .? Time changes happen often and if your time is changed the preop area will call you the afternoon before. - You and your visitor will be asked to self-screen and do not enter if you have any COVID symptoms. Please call surgeon if you need to reschedule. - A mask is optional within the hospital at this time. Patients may have clear liquids (water, carbonated beverages, clear teas, apple juice) until 3 hours prior to surgery with a maximum of 20 ounces. - No food from midnight until time of surgery and no smoking, or chewing tobacco (or any form of nicotine). No chewing gum, candy or mints.(1030am) Take only the following medications with a SIP of water on the morning of surgery: ____Levothyroxine, Amlodipine, Metoprolol, and Gabapentin if needed DO NOT STOP ANY OF YOUR OTHER PRESCRIPTION MEDICATIONS PRIOR TO SURGERY EXCEPT THE FOLLOWING Hold all vitamins and supplements for 3 days per anesthesiologist. Medications to discontinue per physician NONE Date to take last dose__NONE Please no make-up, nail eritrean, hairspray, perfume, deodorant, or body powder the day of surgery.? No jewelry (including any body piercings) or valuables the day of surgery, leave them at home.? Please take a shower or bath the night before, or the morning of, surgery with an antibacterial soap.? Wear comfortable, loose fitting clothing.? - Jewelry must be removed prior to entering the operating room.? Rings and piercings that are not removed may be cut off. - The hospital will not accept responsibility for valuables.? - Please leave all valuables, including medications, at home the day of surgery. If you are going home after surgery, a licensed city route driver must drive you home.? - NO public transportation without another adult if you receive anesthesia. - We recommend that an adult stay with you for 24 hours following discharge. - We also recommend that you do not drive, make important decision, drink alcoholic beverages, or take any drugs that were not prescribed by your health care provider for at least 24 hours after your discharge time. Follow any additional instructions given to you from your surgeon. Telephone instructions given to __Patient and asked if any additional questions and then verbalized understanding. Patient advised to call surgeon office or pre surgery nurse liaison [phone] if any additional questions.
[2025-08-10] VITALS (8 sets, daily range): BP systolic 122–139; BP diastolic 55–72; PULSE 68–97; RESP 10–23; TEMP 36.2; O2SAT 93–98; BMI 26.9
--- OUTSIDE RECORDS SUMMARY | 2025-08-10 00:25 | XMS_ITS | Clinical Summary ---
[facility] Address [address] [place] [address] Care Team Providers Care Rattling Machine Tender Name Role Phone Paul Gaines MD Primary [...] COVID-19 VACCINE - EMERGENCY USE AUTHORIZATION, MRNA, [id number](PF) 30 MCG/0.3 ML IM SUSP 07/25/2021,02/25/2021,02/04/2021 (PNEUMOVAX [...] 12/08/2021, Additional history exists INFLUENZA VACCINE (#1) 2025 2, 08/29/2021, 08/29/2021, Additional history exists COVID-19 Vaccine (2024- 6 season) 2025 03/12/2022, 07/25/2021, 02/25/2021, Additional history exists OSTEOPOROSIS [...] Most Recently Relevant to Health Maintenance Insurance [facility] MEDICARE PART A AND B Care Teams Rattling Machine Tender Relationship Specialty Start Date End Date Paul Gaines MD [address] [id number] PCP - General Internal Medicine 09/19/23
--- OUTSIDE RECORDS SUMMARY | 2025-08-10 00:25 | XMS_ITS | Clinical Summary ---
Author Organization 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
--- OUTSIDE RECORDS SUMMARY | 2025-08-10 00:25 | XMS_ITS | Clinical Summary ---
Author Organization [facility] Address [address] [place] [address] Care Team Providers Care Bridge Club Manager Name Role Phone Elen Bach PA-C Unavailable [phone] Paul Gaines MD Primary Care Provider [phone] Source Comments [facility],non-owned Affiliates and Associated Physician Practices is amultiple site organization consisting of ambulatory clinics and hospital sitesin [place], [place], [place] and [place]. This disclosure is being madepursuant to the Care Everywhere program and may not contain all information available regarding this patient. 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 (general) (routine) w/o abn findings 09/12/2015 Encounter for screening for malignant neoplasm o f rectum 09/12/2015 Atrophic vaginitis 09/09/2014 06/26/2023 Overview (06/26/2023): Atrophic vaginitis;Recorded Elsewhere: No Location: [facility] Source: EHR Chronic: N Practice ID: [id number] [...] on file 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 Gender Identity Not on file Sexual Orientation [...] this topic Medical Devices Implanted Type Area Piercer Device Identifier Shelf Expiration Date Model / Serial / Lot Screw Bsplt 35mm Arthx Shldr Francheska Knutson Implanted:Qty: 1 on 07/24/2022 by Sotero Mcbride MD at [facility] Right: Shoulder [employer] 10/31/2026 AR-9561-35 S / / [id number] Bsplt Glnd 24mm Arthx +4mm Shldr Zenia Implanted:Qty: 1 on 07/24/2022 by Sotero Mcbride MD at [facility] Right: Shoulder [employer] 05/01/2024 AR-9560-24 -4 / / [id number] Sphr Glnd 36mm 24mm +4mm Shldr Ltrlz Implanted:Qty: 1 on 07/24/2022 by Sotero Mcbride MD at [facility] Right: Shoulder [employer] 10/01/2026 AR-9564-24 36-LAT / / [id number] [employer] Modular Glenoid System, Peripheral Screw, Locking 5.5 X 36mm Implanted:Qty: 1 on 07/24/2022 by Sotero Mcbride MD at [facility] Right: Shoulder [employer] 08/31/2025 AR-9563-36 / / [id number] Screw 5.5mm 20mm Lck Gala Strl Bone Implanted:Qty: 1 on 07/24/2022 by Sotero Mcbride MD at [facility] Right: Shoulder [employer] 12/01/2026 AR-9563-20 / / [id number] Screw 5.5mm 32mm Lck Mdlr Glnd Gala Implanted:Qty: 1 on 07/24/2022 by Sotero Mcbride MD at [facility] Right: Shoulder [employer] 08/01/2026 AR-9563-32 / / [id number] Screw 5.5mm 16mm Lck Gala Strl Bone Implanted:Qty: 1 on 07/24/2022 by Sotero Mcbride MD at [facility] Right: Shoulder [employer] 12/01/2026 AR-9563-16 / / [id number] Stem Hum 95mm Set Spl Mnblck Prox Lazaro Implanted:Qty: 1 on 07/24/2022 by Sotero Mcbride MD at [facility] Right: Shoulder [employer] 08/01/2025 AR-9501-05 -135CPC / / [id number] Ins Hum 36mm Univers Revers +3mm Sm Implanted:Qty: 1 on 07/24/2022 by Sotero Mcbride MD at [facility] Right: Shoulder [employer] 08/31/2026 AR-9503S-0 3 / / [id number] Insurance MEDICARE MEDICARE MEDICARE Advance Directives * Full Code (Latest Code Status on File) Date Activated Date Inactivated Comments 07/24/2022 6:39 PM 07/25/2022 12:12 PM Care Teams Bridge Club Manager Relationship Specialty Start Date End Date Paul Gaines MD [address] [place] [id number] PCP - General Internal Medicine 11/06/22 Elen Bach, PA-C [address] [place] [address] 05/22/19
--- OUTSIDE RECORDS SUMMARY | 2025-08-10 00:25 | XMS_ITS | Clinical Summary ---
Author Organization [facility] Address [address] [place] [address] Care Team Providers Care National Stormwater Leader Name Role Phone Sotero Mcbride MD Unavailable [...] A DAY 270 tablet 3 5 Active Active Problems Problem Noted Date Diagnosed Date Other specified hypothyroidism 05/25/2025 Neuropathy, arm, right 05/25/2025 Assessment & Plan (05/25/2025 2:55 PM CDT): From surgery Continue gabapentin S/P shoulder replacement, right 05/25/2025 Arthritis of left knee 05/25/2025 Preventative health care 05/25/2025 Encounters Date Type Department Care Team Description 06/18/2025 10:00 AM CDT Lab [facility] Lab [address] [place] [address] Preventative health care; Other specified hypothyroidism; Droopy eyelid, bilateral 06/18/2025 Orders Only [facility] Health Information Management [address] [place] [address] Scanning, Provider 06/14/2025 Orders Only [facility] [address] [place] [address] [phone] Paul Barillas Jr., MD Droopy eyelid, bilateral (Primary Dx) 05/25/2025 2:15 PM CDT Office Visit [facility] [address] [facility] [address] [place] [address] [phone] Paul Barillas Jr., MD Primary hypertension (Primary [...] on file Legal Sex Female 12:04 AM SHED HAND Gender Identity Female 10/13/2022 4:59 AM SHED HAND Sexual Orientation Straight 10/13/2022 4: 59 AM SHED HAND Obstetrics History Last Filed Vital Signs Vital [...] B Screening 1973 Well Visit 65+ 2019 Breast Cancer Screening-Mammogram 01/01/2025 024 Covid-19 Vaccine (2025-01 6 season) 2025 07/25/2021, 02/25/2021, 02/04/2021 Influenza Vaccine (#1) 2025 , 09/07/2023, 08/30/2022, [...] Procedure Name Priority Date/Time Associated Diagnosis Comments MUSK ANTIBODY Routine 06/18/2025 10:15 AM CDT EGFR Routine 06/18/2025 10:15 AM CDT Preventative health care DIFFERENTIAL AUTO Routine 06/18/2025 10: 15 AM CDT Preventative health care MYASTHENIA GRAVIS EVALUATION WITH MUSK REFLEX Routine 06/18/2025 10:15 AM CDT Droopy eyelid, bilateral THYROID FUNCTION CASCADE Routine 06/18/2025 10:15 AM CDT Other specified hypothyroidism LIPID PANEL Routine 06/18/2025 10:15 AM CDT Preventative health care COMPREHENSIVE METABOLIC PANEL Routine 06/18/2025 10:15 AM CDT Preventative health care CBC WITH AUTO DIFFERENTIAL Routine 06/18/2025 10:15 AM CDT Preventative health care SCAN - RADIOLOGY/IMAGING 06/18/2025 DEXA SCAN Routine 02/19/2024 11:56 AM CDT HM MAMMOGRAPHY Routine 01/01/2024 11:54 AM SHED HAND HM COLONOSCOPY Routine 11/04/2017 11:50 AM SHED HAND from Last 3 Months or Most Recently Relevant to Health Maintenance Results * Myasthenia Gravis Evaluation with MuSK reflex (06/18/2025 10:15 AM CDT) Pathologist [facility] Myasthenia Gravis with MuSK Interpretation See Footnote [facility] Comment: No informative autoantibodies were detected. A negative result does not exclude a diagnosis of autoimmune myasthenia gravis. Testing performed by: [facility], [address] [place] [address]., [address] Anti-acetylcholine receptor, binding 0.00 <=0.02 nmol/L DAVID Comment: ADDITIONAL INFORMATION This test was developed and its performance characteristics determined by [facility] in a manner consistent with CLIA requirements. This test has not been cleared or approved by the U.S. Food and Drug Administration. Test Performed by: [facility] [place] [address] Imagery Analyst: Frida Alejo Ph.D.; CLIA# [id number] Testing performed by: [address] [address] Blood 06/18/2025 10:1 5 AM CDT 06/18/2025 10:38 AM CDT Paul Barillas Jr., MD LAB BLOOD ORDERABLES Final Result DAVID [address] [facility] Department [place] [address] [facility] * MuSK Antibody (06/18/2025 10:15 AM CDT) Pathologist [facility] MuSK ab 0.00 0.00 - 0.02 nmol/L [facility] Comment: ADDITIONAL INFORMATION This test was developed using an analyte specific reagent. Its performance characteristics were determined by [facility] in a manner consistent with CLIA requirements. This test has not been cleared or approved by the U.S. Food and Drug Administration. Test Performed by: [address] [address] Imagery Analyst: Frida Alejo Ph.D.; CLIA# [id number] Testing performed by: [address] [address] Blood 06/18/2025 10:1 5 AM CDT 06/18/2025 10:38 AM CDT us Paul Barillas Jr., MD LAB BLOOD ORDERABLES Final Result DAVID [address] [facility] Department [place] [address] [facility] * eGFR (06/18/2025 10:15 AM CDT) eGFR 79 >=60 mL/min/1. 73 m2 Comment: Interpretive Data Reference Interval Normal >/= 90 mL/min/1.73m2 Mildly decreased* 60 - 89 mL/min/1.73m2 Mildly to moderately decreased 45 - 59 mL/min/1.73m2 Moderately to severely decreased 30 - 44 mL/min/1.73m2 Severely decreased 15 - 29 mL/min/1.73m2 Kidney Failure < 15 mL/min/1.73m2 *Relative to young adult level Estimated glomerular filtration rate is determined by the 2020 CKD-EPI equation recommended by the National Kidney Foundation (A Unifying Approach to GFR Estimation: Recommendations of the NKF-ASK Task Force on Reassessing the Inclusion of Race in Diagnosing Kidney Disease, JASN 2020). The CKD-EPI equation should not be used for patients with unstable renal function and has not been validated in children and those over 70. Current interpretive data was last reviewed 2021. Testing performed by: [address] [address] Blood 06/18/2025 10:1 5 AM CDT 06/18/2025 10:38 AM CDT us Paul Barillas Jr., MD LAB BLOOD ORDERABLES Final Result DAVID [address] [facility] Department [place] [address] * (ABNORMAL) Differential, auto (06/18/2025 10:15 AM CDT) Neutrophil abs 4.35 1.50 - 6.50 K/cumm Comment:Testing performed by : [address] [address] Imm gran abs 0.02 0.00 - 0.10 K/cumm DAVID Comment:Testing performed by : [address] [address] Lymphocyte abs 2.09 0.80 - 3.30 K/cumm DAVID Comment:Testing performed by : [address] [address] Monocyte abs 0.85(H) 0.20 - 0.80 K/cumm DAVID Comment:Testing performed by : [address] [address] Eosinophil abs 0.27 0.00 - 0.50 K/cumm DAVID Comment:Testing performed by : [address] [address] Basophil abs 0.09 0.00 - 0.10 K/cumm DAVID Comment:Testing performed by : [address] [address] Neutrophil pct 56.7 % DAVID Comment: Interpretive Data Percent cell count reference ranges are not reported, since discordance with absolute values may lead to misinterpretation of CBC data. Current Interpretive Data was last revised on 2018. Testing performed by: [address] [address] Imm gran pct 0.3 % DAVID Comment: Interpretive Data Percent cell count reference ranges are not reported, since discordance with absolute values may lead to misinterpretation of CBC data. Current Interpretive Data was last revised on 2018. Testing performed by: [address] [address] Lymphocyte pct 27.2 % [facility] Comment: Interpretive Data Percent cell count reference ranges are not reported, since discordance with absolute values may lead to misinterpretation of CBC data. Current Interpretive Data was last revised on 2018. Testing performed by: [address] [address] Monocyte pct 11.1 % [facility] Comment: Interpretive Data Percent cell count reference ranges are not reported, since discordance with absolute values may lead to misinterpretation of CBC data. Current Interpretive Data was last revised on 2018. Testing performed by: [address] [address] Eosinophil pct 3.5 % [facility] Comment: Interpretive Data Percent cell count reference ranges are not reported, since discordance with absolute values may lead to misinterpretation of CBC data. Current Interpretive Data was last revised on 2018. Testing performed by: [address] [address] Basophil pct 1.2 % [facility] Comment: Interpretive Data Percent cell count reference ranges are not reported, since discordance with absolute values may lead to misinterpretation of CBC data. Current Interpretive Data was last revised on 2018. Testing performed by: [address] [address] Blood 06/18/2025 10:1 5 AM CDT 06/18/2025 10:38 AM CDT us Paul Barillas Jr., MD LAB BLOOD ORDERABLES Final Result [facility] [address] [facility] Department [place] [address] * Thyroid Function [place] (06/18/2025 10:15 AM CDT) TSH 1.50 0.30 - 4.20 mcIUnit/mL Comment:Testing performed by : [address] [address] Blood 06/18/2025 10:1 5 AM CDT 06/18/2025 10:38 AM CDT Paul Barillas Jr., MD LAB BLOOD ORDERABLES Final Result [facility] [address] [facility] Department [place] [address] * (ABNORMAL) CBC with auto differential (06/18/2025 10:15 AM CDT) Pathologist [facility] WBC 7.67 3.80 - 9.90 K/cumm Comment:Testing performed by : [address] [address] Hgb 12.4 11.9 - 15.5 g/dL DAVID Comment:Testing performed by : [address], [address] Hct 40.2 35.6 - 45.5 % DAVID Comment:Testing performed by : [address] [address] Plt 472(H) 150 - 400 K/cumm DAVID Comment:Testing performed by : [address] [address] MPV 9.8 9.1 - 12.3 fL DAVID Comment:Testing performed by : [address] [address] RBC 5.10 3.90 - 5.20 M/cumm DAVID Comment:Testing performed by : [address] [address] MCV 78.8(L) 81.3 - 96.4 fL DAVID Comment:Testing performed by : [address] [address] MCH 24.3(L) 27.1 - 33.3 pg DAVID Comment:Testing performed by : [address] [address] MCHC 30.8(L) 32.3 - 35.7 g/dL DAVID Comment:Testing performed by : [address] [address] RDW CV 14.8 11.1 - 14.9 % DAVID BURNETTE Comment:Testing performed by : [address] [address] RDW SD 42.1 35.7 - 48.1 fL DAVID [place]TE Comment:Testing performed by : [address] [address] NRBC abs 0.00 0.00 - 0.01 K/cumm DAVID [place]UR[place]TE Comment:Testing performed by : [address] [address] Blood 06/18/2025 10:1 5 AM CDT 06/18/2025 10:38 AM CDT us Paul Barillas Jr., MD LAB BLOOD ORDERABLES Final Result DAVID [address] [facility] Department [place] [address] * (ABNORMAL) Lipid panel (06/18/2025 10:15 AM CDT) Cholesterol 212(H) 30 - 199 mg/dL Comment: Interpretive Data Ages < or = 19 years Acceptable: <170 mg/dL Borderline high: 170-199 mg/dL High: >or= 200 mg/dL Ages > or = 20 years Desirable: <200 mg/dL Borderline high: 200-239 mg/dL High: >or= 240 mg/dL Literature References: 1. Expert Panel on Integrated Guidelines for Cardiovascular Health and Risk Reduction in Children and Adolescents. Pediatrics 2011;128:S213 2. NCEP Expert Panel. Circulation 2004;110:227 Current Interpretive Data was last revised on 2018. Testing performed by: [address] [address] Triglycerides 91 <=149 mg/dL DAVID [place] Comment: Interpretive Data Ages < or = 9 years Acceptable: <75 mg/dL Borderline high: 75-99 mg/dL High: >or= 100 mg/dL Ages 10 to 20 years Acceptable: <90 mg/dL Borderline high: 90-129 mg/dL High: >or= 130 mg/dL Ages > or = 20 years Desirable: <150 mg/dL Borderline high: 150-199 mg/dL High: 200-499 mg/dL Very high: >or= 499 mg/dL Literature References: 1. Expert Panel on Integrated Guidelines for Cardiovascular Health and Risk Reduction in Children and Adolescents. Pediatrics 2011;128:S213 2. NCEP Expert Panel. Circulation 2004;110:227 Current Interpretive Data was last revised on 2018. Testing performed by: [address] [address] HDL 88 >=40 mg/dL DAVID Comment: Interpretive Data Ages < or = 19 years Acceptable: >45 mg/dL Borderline low: 40-45 mg/dL Low: <40 mg/dL Ages > or = 20 years Desirable: >or= 60 mg/dL Low: <40 mg/dL Literature References: 1. Expert Panel on Integrated Guidelines for Cardiovascular Health and Risk Reduction in Children and Adolescents. Pediatrics 2011;128:S213 2. NCEP Expert Panel. Circulation 2004;110:227 Current Interpretive Data was last revised on 2018. Testing performed by: [address] [address] LDL, calculated 108 <=129 mg/dL DAVID Comment: Interpretive Data Ages < or = 19 years Acceptable: <110 mg/dL Borderline high: 110-129 mg/dL High: >or= 130 mg/dL Ages > or = 20 years Optimal: <100 mg/dL Near optimal: 100-129 mg/dL Borderline high: 130-159 mg/dL High: >160 mg/dL Calculated using the Omero LDL-C estimating equation. This equation was implemented on 2024. Prior to this date LDL-C was estimated using the Friedewald equation. Literature References: 1. Expert Panel on Integrated Guidelines for Cardiovascular Health and Risk Reduction in Children and Adolescents. Pediatrics 2011;128:S213 2. NCEP Expert Panel. Circulation 2004;110:227 3. Omero Mejia al. BRANDIN Cardiol. 2020 April 01;5(5):540-548. doi: 10.1001/jamacardio.2020.0013 Current Interpretive Data was last revised on 2024. Testing performed by: [address] [address] Non-HDL Cholesterol 124 mg/dL DAVID [place] Comment: Interpretive Data Ages < or = 19 years Acceptable: <120 mg/dL Borderline high: 120-144 mg/dL High: >145 mg/dL Ages > or = 20 years When triglycerides are >200 mg/dL, Non-HDL cholesterol is a secondary target of therapy with treatment goals that are 30 mg/dL greater than the LDL cholesterol target. Literature References: 1. Expert Panel on Integrated Guidelines for Cardiovascular Health and Risk Reduction in Children and Adolescents. Pediatrics 2011;128:S213 2. NCEP Expert Panel. Circulation 2004;110:227 Current Interpretive Data was last revised on 2018. Testing performed by: [address] [address] Chol/HDL ratio 2 DAVID [place] Comment:Testing performed by : [address] [address] Blood 06/18/2025 10:1 5 AM CDT 06/18/2025 10:38 AM CDT us Paul Barillas Jr., MD LAB BLOOD ORDERABLES Final Result DAVID [address] [facility] Department [place] [address] * Comprehensive metabolic panel (06/18/2025 10:15 AM CDT) [facility] Signature Sodium 139 135 - 145 mmol/L Comment:Testing performed by : [address] [address] Potassium, pl 4.5 3.3 - 4.9 mmol/L DAVID [place]TE Comment:Testing performed by : [address] [address] Chloride 104 97 - 110 mmol/L DAVID [place] Comment:Testing performed by : [address] [address] CO2 26 22 - 32 mmol/L DAVID [place] Comment:Testing performed by : [address] [address] Anion gap 9 2 - 15 mmol/L DAVID Comment:Testing performed by : [address] [address] BUN 18 6 - 25 mg/dL DAVID Comment:Testing performed by : [address] [address] Creatinine 0.80 0.60 - 1.10 mg/dL DAVID Comment:Testing performed by : [address] [address] Glucose 92 70 - 199 mg/dL [facility] Comment: Interpretive Data Fasting glucose >/= 126 mg/dl is diagnostic for diabetes. Fasting is defined as no caloric intake for at least 8 hours. Fasting glucose between 100 mg/dl to 125 mg/dl is diagnostic of prediabetes. In a patient with classic symptoms of hyperglycemia or hyperglycemic crisis, a random glucose >/= 200 mg/dl is diagnostic for diabetes. In the absence of unequivocal hyperglycemia, results should be confirmed by repeat testing. The classification and Diagnosis of Diabetes Diabetes Care 2021; 46: S19-S40. Current interpretive data was last revised 2022. Testing performed by: [address] [address] Calcium 9.6 8.5 - 10.3 mg/dL [facility] Comment:Testing performed by : [address] [address] Bilirubin, total 0.2 0.1 - 1.2 mg/dL [facility] Comment:Testing performed by : [address] [address] Protein, pl 7.3 6.5 - 8.5 g/dL [facility] Comment:Testing performed by : [address] [address] Albumin 4.3 3.5 - 5.0 g/dL [facility] Comment:Testing performed by : [address] [address] Alk phos 81 40 - 130 Units/L DAVID Comment:Testing performed by : [address] [address] ALT 13 7 - 45 Units/L DAVID BURNETET Comment:Testing performed by : [facility], [address] [place] [address]., [address] AST 20 10 - 45 Units/L DAVID [place] Comment:Testing performed by : [facility], [address] [place] [address]., [address] Blood 06/18/2025 10:1 5 AM CDT 06/18/2025 10:38 AM CDT Paul Barillas Jr., MD LAB BLOOD ORDERABLES Final Result DAVID [address] [facility] Department [place] [address] * SCAN - RADIOLOGY/IMAGING (06/18/2025) Anatomical Region Laterality Modality Other Provider Scanning Final Result * DEXA SCAN (02/19/2024 11:56 AM CDT) Historical Provider HEALTH MAINTENANCE Final Result * MAMMOGRAPHY (01/01/2024 11:54 AM SHED HAND) Mammography Normal Historical Provider HEALTH MAINTENANCE Final Result * COLONOSCOPY (11/04/2017 11:50 AM SHED HAND) Scribed Colonoscopy Normal Historical Provider HEALTH MAINTENANCE Final Result from Last 3 Months or Most Recently Relevant to Health Maintenance Insurance MEDICARE FOR LIFE MEDICARE FOR LIFE Care Teams National Stormwater Leader Relationship Specialty Start Date End Date Paul Barillas Jr., MD [address] [place] [id number] PCP - General Internal Medicine 05/25/25 Sotero Mcbride MD Referring Physician Orthopedic Surgery 10/15/22
--- OUTSIDE RECORDS SUMMARY | 2025-08-10 00:25 | XMS_ITS | Encounter Summary ---
Author Organization [facility] Address [address] [place] [address] Care Team Providers Care Laborer Plumbing Name Role Phone Elen Bach PA-C Unavailable [phone] Rosanna Tran MD Primary Care Provider [phone] Paul Gaines MD Primary Care Provider + [phone] Shakila Loza Unavailable Encounter Details Date Type Department Care Team (Late st Contact Info) Description 08/21/2022 Telephone [facility] [address] [place] [address] Sotero Mcbride MD [facility] [place] [address] Social History Tobacco Use Types [...] on file Legal Sex 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
--- NOTE | 2025-08-10 07:53 | WPDHPUPDATE1 ---
History and Physical Update Update Date/Time: 08/10/25 07:53 History and Physical has been reviewed, including an updated exam of the patient. There are NO changes in the patient's condition. Risks, benefits, and alternatives have been discussed and questions answered. Patient agrees to proceed with procedure.
[2025-08-10] MEDS: LACTATED RINGERS 1,000 ML 30 ML IV CONT ×2 (12:10→15:02)
[2025-08-10] MEDS: KETOROLAC 15 MG/ML VIAL (*BKC) IV PUSH (12:10)
[2025-08-10] MEDS: ACETAMINOPHEN 500 MG TABLET 1000 MG PO (12:10)
--- NOTE | 2025-08-10 12:31 | P.PNAN_ITS ---
Anes - Initial Pre Proc Eval Procedure: Operation Date: 08/10/25 13:30 Proposed Procedures p Left Knee Arthroscopic Partial Medial and Lateral Meniscectomy - Chad Porter MD Date/Time: 08/10/25 12:31 Surgeon: Chad Porter MD Pre Op Diagnosis: left knee medial and lateral meniscus tears Patient Data Age: 70 Gender: F Height: 1.63 m Weight: 71.1 kg Last Vital Signs Temp 36.2 C L 08/10/25 12:12 Pulse 68 08/10/25 12:12 BP 138/72 08/10/25 12:12 Pulse Ox 98 08/10/25 12:12 Allergies Allergy/AdvReac Type Severity Reaction Status Date / Time Sulfa (Sulfonamide Allergy Severe RESPIRATORY Verified 08/10/25 12:08 Antibiotics) DISTRESS/RASH Home Medications ?Medication ?Instructions ?Recorded ?Confirmed ?Type gabapentin 600 mg tablet See Rx Instructions .Route 0 03/30/24 08/10/25 Rx .COMPLEX #270 tabs metoprolol tartrate 50 mg tablet See Rx Instructions . Route 12/21/24 08/10/25 Rx .COMPLEX #180 tabs cholecalciferol (vitamin D3) 50 50 mcg PO DAILY 08/05/25 History mcg (2,000 unit) capsule levothyroxine 50 mcg tablet 50 mcg PO DAILY 07/27/25 0 08/10/25 History amlodipine 10 mg tablet 10 mg PO HS 08/10/25 5 History aspirin 81 mg tablet,delayed 81 mg PO BID 14 days #28 tabs 08/10/25 Rx release Patient hx anesthesia problems: none Family hx anesthesia problems: none Results Review: All pre-operative results and documents have been reviewed as part of the pre- operative evaluation. [facility] Past Medical History Medical History Pressure sensation in right ear Bilateral hearing loss due to cerumen impaction Right arm weakness Acalculous cholecystitis Encounter for surgical aftercare following surgery on the digestive system Pure hypercholesterolemia Overweight Overactive bladder Irritable bowel syndrome with diarrhea Gastro-esophageal reflux disease without esophagitis Essential (primary) hypertension Right lower quadrant abdominal pain Hypertension Mitral valve prolapse Kidney stones GERD (gastroesophageal reflux disease) Surgical History Surgical History History of rotator cuff surgery right History of cystoscopy History of lithotripsy History of hysterectomy History of tubal ligation History of cataract extraction History of bilateral breast reduction surgery History of appendectomy History of Sebas fundoplication [address] Fernandes Family History Family History Father Diabetes mellitus Family history of hypercholesterolemia Hypertension Family history of kidney disease Family history of coronary artery disease Mother Family history of hypercholesterolemia Hypertension Family history of coronary artery disease Sibling Family history of malignant melanoma Grandparent Family history of malignant neoplasm of ovary Other Family history of cardiovascular disease Family history of malignant neoplasm Social History Social History Social History: Caffeine-coffee Smoking status: Never smoker Second hand tobacco smoke exposure: No Alcohol intake: current Drinks per week: 1 Alcohol use details: GLASS WINE/vodka Substance use: never Substance use type: does not use Do You Feel Safe in your Home?: Yes Lack of Transportation: No Lack of Food: Never True Current Housing: I Have Housing Concerned About Future Housing: No Difficulty Paying Gas/Electric Bills: No Difficulty Paying for Meds: No Currently Unemployed: No Education: Associate Degree Difficulty w/ Childcare or Family Care: No Living arrangements: with family Additional living arrangements comments: Spiritual care concerns: No Anes - Eval Final PreProcedure Day of Procedure 08/10/25 12:31 Patient weight: overweight Heart: regular rate and rhythm Lungs: clear to auscultation Airway: Mallampati scale class II Neurological: alert and oriented Last oral intake: >/= 8 hours ASA classification: III Emergent: no Anesthetic plan: proceed Anesthesia type and monitoring: general LMA and standard monitoring Results Review: All pre-operative results and documents have been reviewed as part of the pre- operative evaluation. Informed Consent: The patient's anesthetic plan and its attendant risks and benefits were discussed with the patient/family/POA. Questions were solicited and answers provided to the satisfaction of the patient/family/POA.
[2025-08-10] MEDS: ceFAZolin 2 GM in SODIUM CHLORIDE 0.9% IV 50 ML 100 ML IVPB (13:47)
[2025-08-10] MEDS: BUPIVACAINE/EPINEPHRINE 0.5% 50 ML VIAL 30 ML INFILTRATE (14:05)
--- NOTE | 2025-08-10 15:15 | P.OP_ITS ---
Procedure Note - Detailed Date of Procedure 08/10/25 Pre-op Diagnosis Left knee medial and lateral meniscus tears Post-op Diagnosis Same Procedure Performed Arthroscopic partial medial and lateral meniscectomies, left knee. Surgeon Chad Porter MD Anesthesia General Findings Degenerative medial meniscus tear treated with subtotal meniscectomy. Significant chondrocalcinosis. Mild lateral tear on the inner margin treated with debridement. Radiofrequency probe used where necessary. Medial femur chondromalacia grade 3, medial tibia grade 1. Lateral femur chondromalacia grade 1, lateral tibia grade 1. Patellar grade 2, trochlea grade 2/3. Description of Procedure The patient was identified and the surgical site confirmed and signed in the preoperative holding area. Antibiotics were started per protocol, and the patient was brought to the operative room and transferred to the OR table. A general anesthetic was administered. Supine position with the operative lower extremity position in the leg jarquin after placement of a well padded tournique t. The leg support was lowered and the contralateral limb was supported with a soft bolster. The knee was prepped and draped in the usual sterile fashion. A time-out was performed. The portal sites were marked and infiltrated with 0.5% Marcaine 20 mL. The limb was exsanguinated and the tourniquet inflated to 300 mL Hg. Standard inferolateral and inferomedial portals were established. Inflow was obtained with the saline pump. The camera was introduced. Diagnostic inspection of the joint was accomplished. The menisci were debrided with the arthroscopic shaver and punches until stable. The radiofrequency probe was also used for further d?bridement. Gentle chondroplasty performed medial femoral condyle. The arthroscopic instruments were removed. The tourniquet released and wounds closed with subcutaneous 4-0 Monocryl absorbable suture. Steri strips and a sterile dressing were applied. A light elastic wrap was placed. The patient was extubated and brought to the recovery room in stable condition. Estimated Blood Loss 5 Drains No Complications No immediate complications Condition Stable Disposition PACU [facility] Billing Surgery - Charge Forward: Surgery Billing
[2025-08-10] MEDS: oxyCODONE HCL (*CRX) 5 MG TAB IR PO (16:14)
== END 2025-08-10 16:49 | disposition home or self-care (01) ==
PROVIDERS: PCP Hospitalist; Visit Provider Orthopaedic Surgery
PROC: (CPT 29870; principal; 2025-08-10 13:30)
DX: S83.242A Other tear of medial meniscus, current injury, left knee, initial encounter (principal); S83.282A Other tear of lateral meniscus, current injury, left knee, initial encounter; M11.262 Other chondrocalcinosis, left knee; M94.262 Chondromalacia, left knee; I10 Essential (primary) hypertension; E78.00 Pure hypercholesterolemia, unspecified; K21.9 Gastro-esophageal reflux disease without esophagitis; N32.81 Overactive bladder; K58.0 Irritable bowel syndrome with diarrhea; X50.1XXA Overexertion from prolonged static or awkward postures, initial encounter; Z79.82 Long term (current) use of aspirin; Z98.890 Other specified postprocedural states; Z98.51 Tubal ligation status; Z87.442 Personal history of urinary calculi; Z80.8 Family history of malignant neoplasm of other organs or systems; Z80.41 Family history of malignant neoplasm of ovary; Z82.49 Family history of ischemic heart disease and other diseases of the circulatory system
CPT/HCPCS: 29880; J0690; A9270; J1100; J1885; J2003; J2405; J2704; J3010; J7120